=== PATIENT | female | born 1970 | race Caucasian/White ===

== ENCOUNTER 2016-09-26 22:13 | Emergency (ER) | payer OTHER ==
--- NOTE | 2016-09-27 07:00 | XR ---
EXAMINATION TYPE: XR tibia fibula LT DATE OF EXAM: 09/27/2016 6:53 AM COMPARISON: NONE HISTORY: Pain TECHNIQUE: Two views are submitted. FINDINGS: The osseous structures are intact. The joint spaces are preserved. IMPRESSION: 1. No acute osseous abnormality.
--- NOTE | 2016-09-27 07:09 | XR ---
LEFT ANKLE, 3 VIEWS INDICATION: Left ankle pain COMPARISON: None. FINDINGS: AP, mortise, and lateral views of the left ankle are obtained. Ankle mortise and syndesmosis are congruent. The talar dome is intact. There is no evidence of acute fracture or subluxation. There is no soft tissue swelling or radiopaque foreign body. IMPRESSION: No acute fracture or subluxation identified.
== END 2016-09-26 22:18 | disposition home or self-care (01) ==
LOC: EC 22:13
DX: S93.402A Sprain of unspecified ligament of left ankle, initial encounter (principal); F31.9 Bipolar disorder, unspecified; F17.200 Nicotine dependence, unspecified, uncomplicated; Z79.899 Other long term (current) drug therapy; Z88.8 Allergy status to other drugs, medicaments and biological substances; X50.1XXA Overexertion from prolonged static or awkward postures, initial encounter; Y92.410 Unspecified street and highway as the place of occurrence of the external cause
CPT/HCPCS: 99283; 73590; 73610; L4350

== ENCOUNTER 2017-01-23 10:06 | Observation (INO) | payer OTHER ==
[2017-01-23] MEDS ORDERED: KETOROLAC 30 MG/ML 1 ML VIAL IVP STA (10:52)
[2017-01-23] MEDS ORDERED: ceFAZolin 1,000 MG in DEXTROSE/WATER 1 50ML.BAG IVPB STA (10:55)
--- NOTE | 2017-01-23 10:57 | ED ---
Skin/Abscess/FB HPI - General Chief complaint: Skin/Abscess/Foreign Body Stated complaint: tooth abcess Time Seen by Provider: 01/23/17 10:30 Source: patient, RN notes reviewed Mode of arrival: ambulatory Limitations: no limitations - History of Present Illness Initial comments: This is a 46-year-old female who states she had a dental abscess for which she was prescribed amoxicillin she states she took it for for 5 days and started feeling better. This was good until last night which was about a week after she quit antibiotics she started developing right upper tooth pain and woke up this point was some swelling to the right side of her face. She denies any fevers chills or sweats to holy with vision symptoms she does state it hurts to bite down inside of her mouth. She denies any drainage or. She states she does have a broken tooth in the back. She hasn't difficulty swallowing difficulty breathing neck pain or other symptoms at this time. MD complaint: abscess/boil - Related Data Home Medications Medication Instructions Recorded Confirmed Citalopram Hydrobromide [CeleXA] 20 mg PO DAILY 01/23/17 01/23/17 Ibuprofen [Motrin] 1,000 mg PO ONCE PRN 01/23/17 01/23/17 Previous Rx's Medication Instructions Recorded OLANZapine [ZyPREXA] 2.5 mg PO BID 30 Days 12/13/15 Allergies Allergy/AdvReac Type Severity Reaction Status Date / Time imipramine Allergy Rash/Hives Verified 01/23/17 11:54 Review of Systems ROS Statement: Those systems with pertinent positive or pertinent negative responses have been documented in the HPI. ROS Other: All systems not noted in ROS Statement are negative. Past Medical History Past Medical History: No Reported History History of Any Multi-Drug Resistant Organisms: None Reported Past Surgical History: Cholecystectomy Additional Past Surgical History / Comment(s): fallopian tube and ovary removed , ectopic pregnacy, D&C, ovarian cyst drained Past Psychological History: Bipolar, Depression, PTSD Smoking Status: Current every day smoker Past Alcohol Use History: Occasional Past Drug Use History: None Reported - Past Family History Mother Family Medical History: Cancer, Renal Disease Additional Family Medical History / Comment(s): kidney ca Father Family Medical History: Hypertension, Myocardial Infarction ([place]) Additional Family Medical History / Comment(s): heart problems Brother(s) Family Medical History: Myocardial Infarction ([place]) Sister(s) Additional Family Medical History / Comment(s): Patient has one half-sister with no major medical problems. Daughter(s) Additional Family Medical History / Comment(s): Patient has 4 children, 3 daughters and 1 son with no major medical problems. General Exam - General Exam Comments Initial Comments: This is a well-developed well-nourished awake alert oriented 3 female Limitations: no limitations General appearance: alert, in no apparent distress Head exam: Present: atraumatic, normocephalic, normal inspection Eye exam: Present: normal appearance, PERRL, EOMI. Absent: scleral icterus, conjunctival injection, periorbital swelling ENT exam: Present: mucous membranes moist, TM's normal bilaterally, other ( Examination oropharynx reveals erythema to the gumline to the right upper gums no discrete area of fluctuance. Some ecchymosis is noted on the anterior aspect of the gumline. Tenderness to percussion with a tongue blade. The dentition is intact however that is present. Tenderness to the face and this region and over the maxillary sinus region.) Neck exam: Present: normal inspection, full ROM, other (No stridor JVD or bruits ). Absent: tenderness, meningismus, lymphadenopathy Respiratory exam: Present: normal lung sounds bilaterally. Absent: respiratory distress, wheezes, rales, rhonchi, stridor Cardiovascular Exam: Present: regular rate, normal rhythm, normal heart sounds. Absent: systolic murmur, diastolic murmur, rubs, gallop, clicks Extremities exam: Present: normal inspection, full ROM, normal capillary refill. Absent: tenderness, pedal edema, joint swelling, calf tenderness Back exam: Present: normal inspection, full ROM Neurological exam: Present: alert, oriented X3, CN II-XII intact Psychiatric exam: Present: normal affect, normal mood Skin exam: Present: warm, dry, intact, normal color. Absent: rash Course Vital Signs 01/23/17 10:11 Temperature 97.8 F Pulse Rate 92 Respiratory 18 Rate Blood Pressure 144/76 O2 Sat by Pulse 98 Oximetry Medical Decision Making - Medical Decision Making I did discuss findings with the patient she is feeling somewhat better she still has significant swelling erythema and tenderness to the right facial area. H will be admitted I did discuss case Dr. Castro patient will get a mandible x-ray series consultation by oral surgery patient will be placed on IV Zosyn. - Lab Data Result diagrams: 01/23/17 11:15 01/23/17 11:15 Lab Results 01/23/17 01/23/17 Range/Units 11:15 11:15 WBC 11.5 H (3.8-10.6) k/uL RBC 4.47 (3.80-5.40) m/uL Hgb 13.6 (11.4-16.0) gm/dL Hct 41.2 (34.0-46.0) % MCV 92.1 (80.0-100.0) fL MCH 30.5 (25.0-35.0) pg MCHC 33.1 (31.0-37.0) g/dL RDW 13.9 (11.5-15.5) % Plt Count 489 H (150-450) k/uL Neutrophils % 74 % Lymphocytes % 16 % Monocytes % 6 % Eosinophils % 2 % Basophils % 1 % Neutrophils # 8.5 H (1.3-7.7) k/uL Lymphocytes # 1.9 (1.0-4.8) k/uL Monocytes # 0.7 (0-1.0) k/uL Eosinophils # 0.2 (0-0.7) k/uL Basophils # 0.1 (0-0.2) k/uL Sodium 141 (137-145) mmol/L Potassium 4.3 (3.5-5.1) mmol/L Chloride 106 (98-107) mmol/L Carbon Dioxide 25 (22-30) mmol/L Anion Gap 10 mmol/L BUN 12 (7-17) mg/dL Creatinine 0.62 (0.52-1.04) mg/dL Est GFR (MDRD) Af Amer >60 (>60 ml/min/1.73 sqM) Est GFR (MDRD) Non-Af >60 (>60 ml/min/1.73 sqM) Glucose 88 (74-99) mg/dL Calcium 9.6 (8.4-10.2) mg/dL Total Bilirubin 0.4 (0.2-1.3) mg/dL AST 43 H (14-36) U/L ALT 86 H (9-52) U/L Alkaline Phosphatase 113 (38-126) U/L Total Protein 7.7 (6.3-8.2) g/dL Albumin 4.6 (3.5-5.0) g/dL Disposition Clinical Impression: Gingivitis, Facial cellulitis Disposition: ADMITTED IP TO THIS [facility] Condition: Stable Referrals: Domingo Sauceda DO [Primary Care Provider] - 1-2 days Decision Time: 12:10
[2017-01-23 11:28] LABS: Basophils # (A) 0.1 k/uL (0-0.2); Basophils % (A) 1 %; CH 31.5; CHCM 34.4; Eosinophils # (A) 0.2 k/uL (0-0.7); Eosinophils % (A) 2 %; HCT 41.2 % (34.0-46.0); HDW 2.43; HGB 13.6 gm/dL (11.4-16.0); Luc # (Auto) 0.12; Luc % (Auto) 1; Lymphocytes # (A) 1.9 k/uL (1.0-4.8); Lymphocytes % (A) 16 %; MCH 30.5 pg (25.0-35.0); MCHC 33.1 g/dL (31.0-37.0); MCV 92.1 fL (80.0-100.0); Monocytes # (A) 0.7 k/uL (0-1.0); Monocytes % (A) 6 %; Neutrophils # (A) 8.5 k/uL (1.3-7.7); Neutrophils % (A) 74 %; RBC 4.47 m/uL (3.80-5.40); RDW 13.9 % (11.5-15.5); WBC 11.5 k/uL (3.8-10.6); WBC (Perox) 11.74
[2017-01-23 11:43] LABS: ALT 86 U/L (9-52); AST 43 U/L (14-36); Alkaline Phosphatase 113 U/L (38-126); Anion Gap 10 mmol/L; Blood Urea Nitrogen 12 mg/dL (7-17); Calcium 9.6 mg/dL (8.4-10.2); Carbon Dioxide 25 mmol/L (22-30); Chloride 106 mmol/L (98-107); Glucose 88 mg/dL (74-99); Non-African American GFR(MDRD) >60 (>60 ml/min/1.73 sqM); Potassium 4.3 mmol/L (3.5-5.1); Sodium 141 mmol/L (137-145); Total Bilirubin 0.4 mg/dL (0.2-1.3); Total Protein 7.7 g/dL (6.3-8.2)
[2017-01-23] MEDS ORDERED: NALOXONE 0.4 MG/ML 1 ML VIAL IV PRN (12:26)
[2017-01-23] MEDS ORDERED: SODIUM CHLORIDE 0.9% 1,000 ML IV SCH (12:30)
[2017-01-23 14:18] VITALS: BMI 37.0
--- NOTE | 2017-01-23 15:30 | XR ---
Panorex HISTORY: Pain Panorex view is submitted. There is no fracture or dislocation. Lucency present at the upper teeth on the right may represent in fection. No definite periapical abscess. IMPRESSION: Correlate for dental decay.
[2017-01-23] MEDS: DEXAMETHASONE SOD PHOSPHATE 10 MG/ML 1 ML VIAL IV SCH ×2 (16:13→23:12)
[2017-01-23] MEDS: PIPERACILLIN-TAZOBACTAM 3.375 GM in DEXTROSE/WATER 1 50ML.BAG IVPB SCH ×2 (16:47→23:13)
--- NOTE | 2017-01-23 17:14 | P.HPIM ---
History of Present Illness H&P Date: 01/23/17 Chief Complaint: Tooth abscess/pain This a 46-year-old female patient of Dr. Nupur Sauceda with a benign medical history who presents to the emergency department today with pain from a dental abscess, received antibiotics took them for 5 days as prescribed began to feel better. Began to have pain last night which is about a week after she completed the course of the antibiotics and developed right upper tooth pain and swelling to the right side of her face. Denies fever or chills and sweating no visual symptoms or drainage. No difficulty swallowing breathing or neck pain at this time. Did mention she has another broken tooth in the back of her mouth. Review of Systems GEN.: [None] EYES: [None] HEENT: [Facial swelling, tooth pain] NECK: [None] RESPIRATORY: [None] CARDIOVASCULAR: [None] GASTROINTESTINAL: [Diarrhea and constipation, currently being worked up by GI specialist] GENITOURINARY: [None] MUSCULOSKELETAL: [None] LYMPHATICS: [None] HEMATOLOGICAL: [None] PSYCHIATRY: [PTSD, bipolar depression] NEUROLOGICAL: [None] Past Medical History Past Medical History: No Reported History History of Any Multi-Drug Resistant Organisms: None Reported Past Surgical History: Cholecystectomy Additional Past Surgical History / Comment(s): fallopian tube and ovary removed , ectopic pregnacy, D&C, ovarian cyst drained. colonoscopy. Past Anesthesia/Blood Transfusion Reactions: Postoperative Nausea & Vomiting ( PONV) Past Psychological History: Bipolar, Depression, PTSD Smoking Status: Current every day smoker Past Alcohol Use History: Occasional Additional Past Alcohol Use History / Comment(s): Patient is a smoker of a half a pack per day on and off since she was 29 years old. She states she drinks alcohol about one time per week. She denies any medical marijuana, marijuana, street drug use. Past Drug Use History: None Reported - Past Family History Mother Family Medical History: Cancer, Renal Disease Additional Family Medical History / Comment(s): kidney ca Father Family Medical History: Hypertension, Myocardial Infarction ([place]) Additional Family Medical History / Comment(s): heart problems Brother(s) Family Medical History: Myocardial Infarction ([place]) Sister(s) Additional Family Medical History / Comment(s): Patient has one half-sister with no major medical problems. Daughter(s) Additional Family Medical History / Comment(s): Patient has 4 children, 3 daughters and 1 son with no major medical problems. Medications and Allergies Home Medications Medication Instructions Recorded Confirmed Type OLANZapine [ZyPREXA] 2.5 mg PO BID 30 Days 12/13/15 01/23/17 Rx Citalopram Hydrobromide [CeleXA] 20 mg PO DAILY 01/23/17 01/23/17 History Ibuprofen [Motrin] 1,000 mg PO ONCE PRN 01/23/17 01/23/17 History Allergies Allergy/AdvReac Type Severity Reaction Status Date / Time imipramine Allergy Rash/Hives Verified 01/23/17 11:54 Physical Exam Vitals: Vital Signs Temp Pulse Pulse Resp BP BP Pulse Ox 01/23/17 16:00 98.1 F 79 16 110/58 96 01/23/17 14:15 79 16 01/23/17 13:50 98.0 F 79 16 114/58 94 L 01/23/17 13:42 71 16 114/55 98 01/23/17 10:11 97.8 F 92 18 144/76 98 Intake and Output 01/23/17 01/23/17 01/23/17 06:59 14:59 22:59 Other: Voiding Method Toilet Toilet Weight 86.183 kg Patient Weight 01/24/17 06:59 Weight 86.183 kg VITAL SIGNS: [. Temperature 98.0, pulse 79, respiratory rate 16, blood pressure 114/58, oxygen saturation 94% on room air. BMI 35.9 kg/m] GENERAL: [Average built, sitting up, comfortable]. EYES: [Pupils equal. Conjunctiva fernie]l. HEENT: [External appearance of nose and ears normal, oropharynx reveals erythema to the gumline to the right upper gums no fluctuance noted, ecchymosis to the anterior aspect of the gumline tender to palpation with a tongue blade dentition is intact, tenderness to the face and this area as well as the maxillary sinus region.]. NECK: [JVD not raised; masses not palpable]. HEART: [First and second heart sounds are normal; no edema]. LUNGS:[ Respiratory rate normal; clear to auscultation]. ABDOMEN: [Soft, nontender, liver spleen not palpable, no masses palpable]. LYMPHATICS: [No lymph nodes palpable in the axilla and neck]. PSYCH: [Alert and oriented x3; mood and affect fernie]l. NEUROLOGICAL: [Cranial nerves grossly intact; no facial asymmetry, power and sensation grossly intact]. Results CBC & Chem 7: 01/23/17 11:15 01/23/17 11:15 Labs: Abnormal Lab Results - Last 24 Hours (Table) 01/23/17 01/23/17 Range/Units 11:15 11:15 WBC 11.5 H (3.8-10.6) k/uL Plt Count 489 H (150-450) k/uL Neutrophils # 8.5 H (1.3-7.7) k/uL AST 43 H (14-36) U/L ALT 86 H (9-52) U/L Thrombosis Risk Factor Assmnt - Choose All That Apply Any of the Below Risk Factors Present?: Yes Each Factor Represents 1 point: Age 41-60 years, Obesity (BMI >25) Other Risk Factors: No Other congenital or acquired thrombophilia - If yes, enter type in comment: No Thrombosis Risk Factor Assessment Total Risk Factor Score: 2 Thrombosis Risk Factor Assessment Level: Low Risk Assessment and Plan Plan: ASSESSMENT: -Infection of the first second and third molar on the top right quadrant, gumline erythematous to both the medial and lateral aspect, failed outpatient treatment. -Maxillofacial pain related to #1 -Bipolar depression controlled -PTSD, controlled -Current smoker PLAN: Home medications reordered, panoramic x-ray ordered oral surgery consulted, Decadron ordered for swelling, IV antibiotics initiated, pain medication ordered. Smoking cessation discussed with patient. Plan of care discussed with the patient the bedside she is in agreement. We'll follow closely.
[2017-01-23] MEDS ORDERED: HYDROcodone/APAP 5-325MG 1 EACH TAB PO PRN (17:31)
[2017-01-23] MEDS ORDERED: KETOROLAC 30 MG/ML 1 ML VIAL IVP SCH (18:00)
[2017-01-23] MEDS: NICOTINE 7MG/24HR PATCH TRANSDERM SCH (23:11)
[2017-01-23] MEDS: NAPROXEN 250 MG TAB PO SCH (23:12)
[2017-01-24 08:12] VITALS: BP 97/56; PULSE 96; RESP 16; TEMP 98
[2017-01-24] MEDS: DEXAMETHASONE SOD PHOSPHATE 10 MG/ML 1 ML VIAL IV SCH (08:18)
[2017-01-24] MEDS: PIPERACILLIN-TAZOBACTAM 3.375 GM in DEXTROSE/WATER 1 50ML.BAG IVPB SCH (08:18)
[2017-01-24] MEDS: NAPROXEN 250 MG TAB PO SCH (08:19)
[2017-01-24] MEDS: NICOTINE 7MG/24HR PATCH TRANSDERM SCH (08:37)
[2017-01-24] MEDS ORDERED: OLANZapine 2.5 MG TAB PO SCH (09:00)
[2017-01-24] MEDS ORDERED: ENOXAPARIN 40 MG/0.4 ML SYRINGE SQ SCH (09:00)
[2017-01-24] MEDS ORDERED: CITALOPRAM HYDROBROMIDE 20 MG TAB PO SCH (09:00)
--- NOTE | 2017-01-24 10:28 | HP ---
HISTORY AND PHYSICAL DATE OF ADMISSION: January 23, 2017. PRESENT COMPLAINT: Right-sided face swollen. HISTORY OF PRESENTING COMPLAINT: This is a 46 -year-old patient of Dr. Sauceda who developed a dental abscess. Took 5 days of amoxicillin, was feeling better. Stopped taking 7 days ago. The infected tooth is on the right upper jaw on the right side. This morning noted a swelling on the right side of the face at work, increasing pain and decided to come in. FAMILY HISTORY: Of kidney disease with kidney cancer. SOCIAL HISTORY: The patient smokes about 4-5 cigarettes a day. Alcohol once a week. . Works at [employer]. EXAMINATION: On examination, temperature 97.8, pulse 90, respiratory rate 18, blood pressure 144/74, pulse ox 98% room air. BMI 35.9. Tenderness over the right maxillary sinus and puffiness to the right of the face. Lungs are clear. Cardiovascular first and second are normal. LABORATORY DATA: 11.5, platelets . Panorex view shows lucency present in the upper teeth on the right. ASSESSMENT AND PLAN: 1. Dental decay likely periapical abscesses even though not seen on x-ray, given that patient sinus area is rather tender right side of the face. 2. Chronic nicotine dependence, the patient is an active smoker. 3. Obesity BMI is 35.9. 4. Bipolar disorder. Under control. PLAN: Patient is started on IV Zosyn. Maxillary facial director of home economics was consulted. The patient was put on a clear liquid diet. Copy to Dr. Sauceda. Additionally this is attending note. Patient seen and examined by me today. I discussed with my nurse practitioner, Ms. Herrerapareshnegin. MMODL / IJN: [id number] /
--- NOTE | 2017-01-24 11:16 | CONS ---
CONSULTATION DATE OF CONSULTATION: 01/24/2017. CHIEF COMPLAINT: My face is swollen. HISTORY OF PRESENT ILLNESS: The patient is a 46-year-old, female, who had facial swelling of the right infraorbital and canine space region. She states that she had been on an antibiotic course of amoxicillin for approximately 1 week and her previous symptoms subsided. She was then off of the amoxicillin for 1 week and then she had acute swelling of the right face. She presented to the ER for evaluation. She was admitted for observation and IV antibiotics. PAST MEDICAL HISTORY: Unremarkable. She denies any cardio or pulmonary disease, GI or disease, endocrine disease, musculoskeletal disease. She does suffer from anxiety and depression. EXAMINATION: Head and neck reveals the patient to be in no distress. She is sitting in bed comfortably. There is mild swelling of the right canine space region which is soft and mildly tender. There is no other swelling present. There is no cervical lymphadenopathy. This swelling does not extend into the eye. Intraoral examination reveals tooth #5 to be decayed and sensitive to percussion. There is mild buccal vestibular swelling present which is tender to palpation. There is no other swelling or lesions noted in the oral cavity. Panoramic evaluation revealed tooth #5 to have distal caries extending into the pulp. A periapical radiolucency is also noted associated with tooth #5. ASSESSMENT: 1. Necrotic tooth #5. 2. Right facial cellulitis secondary to an odontogenic source. PLAN: The patient can be discharged today with p.o. antibiotics. The patient was also instructed to place heat to the area, no ice and to contact my office in the a.m. for an appointment to extract tooth #5. MMODL / IJN: [id number] /
--- NOTE | 2017-01-25 08:02 | DS ---
DISCHARGE SUMMARY DATE OF ADMISSION: 01/23/2017 DATE OF DISCHARGE: 01/24/2017 FINAL DIAGNOSES: 1. Right facial cellulitis secondary to odontogenic source of necrotic tooth #5. 2. Chronic nicotine dependence. Patient active cigarette smoker. 3. Obesity, body mass index 35.9. 4. Bipolar disorder, under control. HOSPITAL COURSE: This patient who has got above tooth infection only took 5 days of amoxicillin, started feeling better, stopped it. Presented with facial swelling. Seen by Dr. Diggs. Patient to be discharged home on antibiotics and have his tooth pulled out on Wednesday with Dr. Diggs. On exam, tenderness over the right maxilla. LUNGS: Slightly decreased breath sounds. Patient counseled against smoking at length. Total time spent on smoking cessation was about 5 minutes in addition to the discharge summary. DISCHARGE MEDICATIONS: 1. Zyprexa 2.5 mg p.o. b.i.d. 2. Celexa 20 mg p.o. daily. 3. Naproxen 250 mg p.o. b.i.d. 4. Nicotine patch 7. 5. Bactrim DS 1 tablet p.o. q.12 , fourteen tablets. Follow up with Dr. Diggs on 01/25/2017 [address] Domingo Sauceda in 3 days. MMODL / IJN: [id number] /
== END 2017-01-24 14:11 | disposition home or self-care (01) ==
LOC: EC 10:06 → 3OBS 12:26
PROVIDERS: ADMIT Hospitalist; ATTEND Hospitalist
DX: K02.9 Dental caries, unspecified (principal); L03.211 Cellulitis of face; K05.10 Chronic gingivitis, plaque induced; F43.10 Post-traumatic stress disorder, unspecified; F31.9 Bipolar disorder, unspecified; F41.9 Anxiety disorder, unspecified; F17.210 Nicotine dependence, cigarettes, uncomplicated; E66.9 Obesity, unspecified; Z68.35 Body mass index [BMI] 35.0-35.9, adult; Z79.899 Other long term (current) drug therapy; Z88.8 Allergy status to other drugs, medicaments and biological substances; Z80.51 Family history of malignant neoplasm of kidney; Z82.49 Family history of ischemic heart disease and other diseases of the circulatory system
CPT/HCPCS: 99284; 96365 ×2; 96375 ×3; 96366 ×2; 96367; 96376 ×2; 36415; 80053; 85025; 87040; 70355; G0378 ×2; J1100 ×2; J1885; J2543 ×2; J0690

== ENCOUNTER → 2017-11-15 | Outpatient (CLI) | payer OTHER ==
--- NOTE | 2017-11-15 07:58 | MR ---
EXAMINATION TYPE: MR ankle LT wo con DATE OF EXAM: 11/15/2017 COMPARISON: Left ankle radiographs dated 09/26/2016 HISTORY: Pain in left ankle and joints of left foot Standard multiplanar, multisequence MRI departmental protocol images of the left ankle were acquired without intravenous contrast. FINDINGS: Lateral compartment: There is a focal short segment split tear of the peroneus longus just distal to the fibula at the level of the talus extending over approximately 1.5 cm in length with surrounding m inimal amount of edema seen on axial images 11 through 14 on the PD fat-sat sequence and coronal imag e 19. Previous brevis is unremarkable. Medial compartment: There is a trace amount of fluid surrounding the posterior tibialis and thickenin g of the tendon with mild amount of surrounding subcutaneous edema on image 24 of axial PD fat-sat se quence. The flexor digitorum longus and flexor hallucis longus are intact and unremarkable in signal. Anterior compartment: The extensor tendons are unremarkable in signal and morphology. Posterior compartment: Achilles tendon is intact and unremarkable in signal and morphology. Ligaments: The Lisfranc ligament appears intact and alignment is maintained and the visualized midfoo t to forefoot. The anterior tibiotalar ligament displays internal heterogenous signal compatible with low-grade injury such as on image 21. The anterior talofibular ligament and posterior talofibular li gament appear intact and unremarkable. The deltoid ligament is also intact although there is high sig nal throughout its fibers and overlying edema indicative of low-grade injury without tear. The spring ligament is unremarkable. Bone marrow: Bone marrow signal is within normal limits. Incomplete fat saturation is seen of the med ial malleolus without corresponding T1 hypointensity. Other: Mild amount of nonspecific subcutaneous edema seen of the medial distal lower extremity above the ankle joint. Talar dome is intact. Alignment is maintained at the ankle joint. Plantar fascial is also unremarkable. Sinus tarsus is within normal limits. Minimal bony irregularity and osseous proli feration are seen of the talonavicular joint dorsally. Small amount of tibiotalar fluid appears withi n normal limits. IMPRESSION: 1. Focal short segment split tear of the Proteus longus just distal to the lateral malleolus/fibula w ith minimal overlying subcutaneous edema. 2. Mild posterior tibialis tenosynovitis with minimal overlying subcutaneous edema. 3. Low-grade injury without tear of the anterior tibiotalar ligament and deltoid ligament. Anterior a nd posterior talofibular ligaments are intact and unremarkable. 4. No evidence of malalignment of the left ankle common bone marrow edema or acute fracture. 5. Early mild degenerative change of the dorsal talonavicular joint.
== END | disposition home or self-care (01) ==
LOC: RADMRIMAIN 06:40
PROVIDERS: ATTEND Family Medicine
DX: S86.312A Strain of muscle(s) and tendon(s) of peroneal muscle group at lower leg level, left leg, initial encounter (principal); S93.422A Sprain of deltoid ligament of left ankle, initial encounter; S93.492A Sprain of other ligament of left ankle, initial encounter; M65.872 Other synovitis and tenosynovitis, left ankle and foot; M19.072 Primary osteoarthritis, left ankle and foot

== ENCOUNTER → 2018-05-26 | Outpatient (CLI) | payer OTHER ==
--- NOTE | 2018-05-29 07:40 | MM ---
Reason for exam: clinical finding. Last mammogram was performed 3 years and 2 months ago. History: Patient is postmenopausal. Family history of breast cancer in maternal grandmother at age 50. Took hormonal contraceptives for 2 years beginning at age 21. Indicated problem(s): pain in the left breast. Physical Findings: Nurse did not find any significant physical abnormalities on exam. MG 3D Diag Mammo W/Cad AIME Bilateral CC and MLO view(s) were taken. Prior study comparison: March 29, 2015, right breast MG 3d work up w/cad RT. March 25, 2015, bilateral MG screening mammo w CAD. The breast tissue is heterogeneously dense. This may lower the sensitivity of mammography. No discrete abnormality. These results were verbally communicated with the patient and result sheet given to the patient on 05/26/18. ASSESSMENT: Negative, BI-RAD 1 RECOMMENDATION: Routine screening mammogram of both breasts in 1 year.
--- NOTE | 2018-05-29 07:43 | USB ---
History: Patient is postmenopausal. Family history of breast cancer in maternal grandmother at age 50. Took hormonal contraceptives for 2 years beginning at age 21. US Breast LT Bilateral complete breast ultrasound includes all four quadrants, the retroareolar region and axilla. Finding demonstrates No cystic or solid lesion seen. These results were verbally communicated with the patient and result sheet given to the patient on 05/26/18. ASSESSMENT: Negative, BI-RAD 1 RECOMMENDATION: Clinical management. Manage on a clinical basis the breast pain. Routine screening mammogram of both breasts in 1 year.
== END | disposition home or self-care (01) ==
LOC: RADMAMWWP 07:33
PROVIDERS: ATTEND Family Medicine
DX: N64.4 Mastodynia (principal)
CPT/HCPCS: 77062; 77066

== ENCOUNTER 2019-04-10 21:12 | Emergency (ER) | payer OTHER ==
[2019-04-10 21:15] VITALS: BP 136/82; PULSE 99; RESP 20; TEMP 98.5
[2019-04-10] MEDS ORDERED: IBUPROFEN 600 MG TAB PO STA ×3 (21:49→22:16)
--- NOTE | 2019-04-10 22:14 | XR ---
EXAMINATION TYPE: XR hand complete RT DATE OF EXAM: 04/10/2019 COMPARISON: NONE HISTORY: Hand pain TECHNIQUE: 3 views FINDINGS: Metacarpals are intact. I see no fracture nor dislocation. There are no erosions. IMPRESSION: No fracture seen.
--- NOTE | 2019-04-10 22:15 | XR ---
EXAMINATION TYPE: XR forearm RT DATE OF EXAM: 04/10/2019 COMPARISON: NONE HISTORY: Forearm pain TECHNIQUE: 2 views FINDINGS: Radius and ulna appear intact. I see no fracture nor dislocation. Elbow joint and wrist lilian nt appear intact. IMPRESSION: Negative right forearm exam.
--- NOTE | 2019-04-10 22:16 | XR ---
EXAMINATION TYPE: XR wrist complete RT DATE OF EXAM: 04/10/2019 COMPARISON: NONE HISTORY: Wrist pain TECHNIQUE: 4 views FINDINGS: I see no fracture nor dislocation. Joint spaces are normal. . IMPRESSION: Negative right wrist exam
--- NOTE | 2019-04-11 14:09 | ED ---
General Adult HPI - General Chief complaint: Extremity Injury, Upper Stated complaint: Wrist Injury Time Seen by Provider: 04/10/19 21:38 Source: patient, RN notes reviewed, old records reviewed Mode of arrival: ambulatory Limitations: no limitations - History of Present Illness Initial comments: 48-year-old female patient presents to ED complaining of right wrist injury. Patient forced that she was squatting down when she slipped and fell backwards. Fallingl on outstretched right arm. Denies any trauma to head or neck. Denies any other injury. Plain is forearm wrist and hand pain. Denies other complaints. Systemic: Pt denies fatigue, fever/chills, rash. Pt denies weakness, night sweats, weight loss. Neuro: Pt denies headache, visual disturbances, syncope or pre-syncope. HEENT: Pt denies ocular discharge or irritation, otalgia, rhinorrhea, pharyngitis or notable lymphadenopathy. Cardiopulmonary: Pt denies chest pain, SOB, heart palpitations, dyspnea on exertion. Abdominal/GI: Pt denies abdominal pain, n/v/d. : Pt denies dysuria, burning w/ urination, frequency/urgency. Denies new onset urinary or bowel incontinence. MSK: Pt denies loss of strength or function in extremities. Neuro: Pt denies new onset weakness, paresthesias. - Related Data Home Medications Medication Instructions Recorded Confirmed Citalopram Hydrobromide [CeleXA] 20 mg PO DAILY 01/23/17 01/23/17 Previous Rx's Medication Instructions Recorded OLANZapine [ZyPREXA] 2.5 mg PO BID 30 Days tab 12/13/15 Naproxen [Naprosyn] 250 mg PO BID #14 tab 01/24/17 Nicotine 7Mg/24Hr Patch [Habitrol] 1 patch TRANSDERM DAILY #14 patch 01/24/17 Sulfamethox-Tmp 800-160Mg [Bactrim 1 tab PO Q12HR #14 tab 01/24/17 DS 800-160 mg] Allergies Allergy/AdvReac Type Severity Reaction Status Date / Time imipramine Allergy Rash/Hives Verified 04/10/19 21:15 Review of Systems ROS Statement: Those systems with pertinent positive or pertinent negative responses have been documented in the HPI. ROS Other: All systems not noted in ROS Statement are negative. Past Medical History Past Medical History: No Reported History History of Any Multi-Drug Resistant Organisms: None Reported Past Surgical History: Cholecystectomy Additional Past Surgical History / Comment(s): fallopian tube and ovary removed, ectopic pregnacy, D&C, ovarian cyst drained. colonoscopy. Past Anesthesia/Blood Transfusion Reactions: Postoperative Nausea & Vomiting (PONV) Past Psychological History: Bipolar, Depression, PTSD Smoking Status: Current every day smoker Past Alcohol Use History: Occasional Past Drug Use History: None Reported - Past Family History Mother Family Medical History: Cancer, Renal Disease Additional Family Medical History / Comment(s): kidney ca Father Family Medical History: Hypertension, Myocardial Infarction ([place]) Additional Family Medical History / Comment(s): heart problems Brother(s) Family Medical History: Myocardial Infarction ([place]) Sister(s) Additional Family Medical History / Comment(s): Patient has one half-sister with no major medical problems. Daughter(s) Additional Family Medical History / Comment(s): Patient has 4 children, 3 daughters and 1 son with no major medical problems. General Exam - General Exam Comments Initial Comments: Constitutional: NAD, AOX3, Pt has pleasant affect. HEENT: NC/AT, trachea midline, neck supple, no lymphadenopathy. Posterior pharynx non erythematous, without exudates. External ears appear normal, without discharge. Mucous membranes moist. Eyes PERRLA, EOM intact. There is no scleral icterus. No pallor noted. Cardiopulmonary: RRR, no murmurs, rubs or gallops, no JVD noted. Lungs CTAB in anterior and posterior jaimes. No peripheral edema. Abdominal exam: Abdomen soft and non-distended. Abdomen non-tender to palpation in all 4 quadrants. Bowel sounds active in LLQ. No hepatosplenomegaly. No ecchymosis Neuro: CN II-XII grossly intact. No nuchal rigidity. No raccon eyes, no gunter sign, no hemotympanum. No cervical spinal tenderness. MSK: Mild tenderness to distal radius snuffbox region. Full active range of motion of wrist and all fingers. Neurovascularly intact. Thumb spica splint placed. Neurovascularly intact after splint placement. No posterior calf tenderness bilaterally, homans sign negative bilaterally. Posterior tibialis and radial pulse +2 bilaterally. Sensation intact in upper and lower extremities. Full active ROM in upper and lower extremities, 5/5 stregnth. Limitations: no limitations Course Vital Signs 04/10/19 21:13 Temperature 98.5 F Pulse Rate 99 Respiratory 20 Rate Blood Pressure 136/82 O2 Sat by Pulse 96 Oximetry Medical Decision Making - Medical Decision Making 48-year-old female patient presents to the chief complaint of fall nauseous right arm, right wrist injury. Patient also in stable, afebrile. Physical exam displayed out snuffbox tenderness. Plain films were negative. Patient placed in a thumb spica splint, neurovascularly intact after splint placement. Will discharge the patient orthopedic follow-up and repeat films. We'll turn the condition worsens. Case discussed with Dr. Ruano. Disposition Clinical Impression: Wrist sprain Disposition: HOME SELF-CARE Condition: Stable Instructions (If sedation given, give patient instructions): Wrist Injury (ED) Additional Instructions: Follow-up with primary care provider and orthopedic consult tomorrow. Return to ER if condition worsens. Continue to wear splint. Is patient prescribed a controlled substance at d/c from ED?: No Referrals: Domingo Sauceda DO [Primary Care Provider] - 1-2 days Henok Elise MD [STAFF PHYSICIAN] - 1-2 days
== END 2019-04-10 23:40 | disposition home or self-care (01) ==
LOC: EC 21:12
DX: S63.501A Unspecified sprain of right wrist, initial encounter (principal); F32.9 Major depressive disorder, single episode, unspecified; F17.200 Nicotine dependence, unspecified, uncomplicated; Z79.899 Other long term (current) drug therapy; Z88.8 Allergy status to other drugs, medicaments and biological substances; W01.0XXA Fall on same level from slipping, tripping and stumbling without subsequent striking against object, initial encounter
CPT/HCPCS: 29125; 99284

== ENCOUNTER → 2019-09-19 | Outpatient (CLI) | payer SELFPAY ==
--- NOTE | 2019-09-19 12:09 | XR ---
EXAMINATION TYPE: XR chest 2V DATE OF EXAM: 09/19/2019 COMPARISON: NONE HISTORY: Chest pain TECHNIQUE: Frontal and lateral views of the chest are obtained. FINDINGS: There is no focal air space opacity. No evidence for pneumothorax. No pleural effusion. The cardiac silhouette size is within normal limits. The osseous structures are grossly intact. IMPRESSION: 1. No acute cardiopulmonary process.
== END | disposition home or self-care (01) ==
LOC: RADXRMAIN 11:43
PROVIDERS: ATTEND Family Medicine
DX: R50.9 Fever, unspecified (principal)
CPT/HCPCS: 71046

== ENCOUNTER 2020-02-29 07:29 | Emergency (ER) | payer OTHER ==
[2020-02-29 07:35] VITALS: BP 144/79; PULSE 95; RESP 18; TEMP 98.4
[2020-02-29] MEDS ORDERED: AMOXIC-POT CLAV 875MG STARTER PACK 2 TAB BTL PO STA (07:40)
--- NOTE | 2020-02-29 07:41 | ED ---
ENT HPI - General Chief complaint: Dental/Oral Stated complaint: Mouth Pain Time Seen by Provider: 02/29/20 07:36 Source: patient Mode of arrival: ambulatory Limitations: no limitations - History of Present Illness Initial comments: 49yo female presenting today for cc of left upper dental pain. Patient states that she has had left upper dental pain x 2 days. Patient states she she now has some left facial swelling. Denies swelling below tongue, fevers, difficulty swallowing. Patient appears well nontoxic in no acute distress. - Related Data Home Medications Medication Instructions Recorded Confirmed Citalopram Hydrobromide [CeleXA] 20 mg PO DAILY 01/23/17 01/23/17 Previous Rx's Medication Instructions Recorded OLANZapine [ZyPREXA] 2.5 mg PO BID 30 Days tab 12/13/15 Naproxen [Naprosyn] 250 mg PO BID #14 tab 01/24/17 Nicotine 7Mg/24Hr Patch [Habitrol] 1 patch TRANSDERM DAILY #14 patch 01/24/17 Sulfamethox-Tmp 800-160Mg [Bactrim 1 tab PO Q12HR #14 tab 01/24/17 DS 800-160 mg] Amoxicillin/Potassium Clav 1 tab PO Q12HR 7 Days #14 tab 02/29/20 [Augmentin 875-125 Tablet] Allergies Allergy/AdvReac Type Severity Reaction Status Date / Time imipramine Allergy Rash/Hives Verified 02/29/20 07:35 Review of Systems ROS Statement: Those systems with pertinent positive or pertinent negative responses have been documented in the HPI. ROS Other: All systems not noted in ROS Statement are negative. Past Medical History Past Medical History: No Reported History Additional Past Medical History / Comment(s): pseudotumor History of Any Multi-Drug Resistant Organisms: None Reported Past Surgical History: Cholecystectomy Additional Past Surgical History / Comment(s): fallopian tube and ovary removed, ectopic pregnacy, D&C, ovarian cyst drained. colonoscopy. Past Anesthesia/Blood Transfusion Reactions: Postoperative Nausea & Vomiting (PONV) Past Psychological History: Bipolar, Depression, PTSD Smoking Status: Current every day smoker Past Alcohol Use History: Occasional Past Drug Use History: None Reported - Past Family History Mother Family Medical History: Cancer, Renal Disease Additional Family Medical History / Comment(s): kidney ca Father Family Medical History: Hypertension, Myocardial Infarction ([place]) Additional Family Medical History / Comment(s): heart problems Brother(s) Family Medical History: Myocardial Infarction ([place]) Sister(s) Additional Family Medical History / Comment(s): Patient has one half-sister with no major medical problems. Daughter(s) Additional Family Medical History / Comment(s): Patient has 4 children, 3 daughters and 1 son with no major medical problems. General Exam - General Exam Comments Initial Comments: General: The patient is awake and alert, in no distress Eye: Pupils are equal, round and reactive to light, extra-ocular movements are intact. No nystagmus. There is normal conjunctiva bilaterally. No signs of icterus. Ears, nose, mouth and throat: There are moist mucous membranes and no oral lesions. Mild left sided facial swelling, patient has 1 tooth that is carious of the left upper jaw tender to percussion. No adjacent area of fluctuation of the gingiva. No swelling below tongue or the angle of the mandible. Neck: The neck is supple, there is no tenderness or JVD. Musculoskeletal: Normal ROM, no tenderness. Strength 5/5. Sensation intact. Radial pulses equal bilaterally 2+. Neurological: A&O x 3. CN II-XII intact grossly, There are no obvious motor or sensory deficits. Coordination appears grossly intact. Speech is normal. Skin: Skin is warm and dry and no rashes or lesions are noted. Psychiatric: Cooperative, appropriate mood & affect, normal judgment. Limitations: no limitations Course Vital Signs 02/29/20 07:33 Temperature 98.4 F Pulse Rate 95 Respiratory 18 Rate Blood Pressure 144/79 O2 Sat by Pulse 97 Oximetry Medical Decision Making - Medical Decision Making Finding on exam concerning for dental infection. pt initiated on augmentin. no signs of ludwigs angina, pt does not appear toxic. discussed case [facility] attending who is agreeable to care plan and discharge. Disposition Clinical Impression: Dental infection Disposition: HOME SELF-CARE Condition: Good Instructions (If sedation given, give patient instructions): Dental Abscess (ED) Additional Instructions: Please use medication as discussed. Please follow-up with dentist in the next 2 days.. Please return to emergency room if the symptoms increase or worsen or for any other concerns. Prescriptions: Amoxicillin/Potassium Clav [Augmentin 875-125 Tablet] 1 tab PO Q12HR 7 Days #14 tab Is patient prescribed a controlled substance at d/c from ED?: No Referrals: Domingo Sauceda DO [Primary Care Provider] - 1-2 days Time of Disposition: 07:41
== END 2020-02-29 07:49 | disposition home or self-care (01) ==
LOC: EC 07:29
DX: K04.7 Periapical abscess without sinus (principal); F41.9 Anxiety disorder, unspecified; F32.9 Major depressive disorder, single episode, unspecified; F17.200 Nicotine dependence, unspecified, uncomplicated; Z79.899 Other long term (current) drug therapy; Z88.8 Allergy status to other drugs, medicaments and biological substances
CPT/HCPCS: 99282

== ENCOUNTER → 2020-03-21 | Outpatient (CLI) | payer OTHER ==
--- NOTE | 2020-03-22 14:41 | MM ---
Reason for exam: screening (asymptomatic). Last mammogram was performed 1 year and 10 months ago. History: Patient is postmenopausal. Family history of breast cancer in maternal grandmother at age 50. Took hormonal contraceptives for 2 years beginning at age 21. Physical Findings: A clinical breast exam by your physician is recommended on an annual basis and results should be correlated with mammographic findings. MG Screening Mammo w CAD Bilateral CC and MLO view(s) were taken. Prior study comparison: May 26, 2018, bilateral MG 3d diag mammo w/cad AIME. March 29, 2015, right breast MG 3d work up w/cad RT. There are scattered fibroglandular densities. There is chronic nodularity in the left breast. No significant changes when compared with prior studies. ASSESSMENT: Benign, BI-RAD 2 RECOMMENDATION: Routine screening mammogram of both breasts in 1 year.
== END | disposition home or self-care (01) ==
LOC: RADMAMWWP 10:59
PROVIDERS: ATTEND Family Medicine
DX: Z12.31 Encounter for screening mammogram for malignant neoplasm of breast (principal)
CPT/HCPCS: 77067

== ENCOUNTER → 2020-05-06 | Outpatient (CLI) | payer OTHER | END | disposition home or self-care (01) | LOC: LABWHC1 12:08 | PROVIDERS: ATTEND Psychiatry & Neurology Pain Medicine | DX: R00.2 Palpitations (principal) | CPT/HCPCS: 36415; 93005 ==

== ENCOUNTER → 2020-05-24 | Outpatient (CLI) | payer OTHER ==
[2020-05-25 02:38] LABS: T4, Free (Free Thyroxine) 0.8 ng/dL (0.80-1.80)
== END | disposition home or self-care (01) ==
LOC: LABWHC1 15:55
PROVIDERS: ATTEND Internal Medicine Interventional Cardiology
DX: E05.90 Thyrotoxicosis, unspecified without thyrotoxic crisis or storm (principal)
CPT/HCPCS: 36415; 84439; 84443

== ENCOUNTER 2020-06-24 17:37 | Emergency (ER) | payer OTHER ==
--- NOTE | 2020-06-24 18:18 | ED ---
General Adult HPI - General Chief complaint: Arrhythmia/Palpitations Stated complaint: head injury, palpitations Time Seen by Provider: 06/24/20 17:52 Source: patient Mode of arrival: ambulatory Limitations: no limitations - History of Present Illness Initial comments: Dictation was produced using [employer] dictation software. please excuse any gramma tical, word or spelling errors. This patient was cared for during a federal and state declared state of emergency secondary to Covid 19 Chief Complaint: 49-year-old female with past medical history of pseudotumor cerebri presents to the emergency department for chest pain and palpitations. History of Present Illness: Patient is a 49-year-old female she presents to the emergency department for chest pain or palpitations. Patient states she's been having these symptoms for a week. Back in December of last year she was diagnosed with pseudotumor cerebri. She is was initially seen here and transferred to [facility]. Patient states that she follows up with her neurologist bao ramos. She scheduled to have a lumbar puncture in one week. She states that she does not take her medications for pseudotumor because she feels like they do not help her symptoms. She has a referral to see a neurosurgeon for shunt placement. States last time she had a lumbar puncture was back in February last year. Patient states for the last several weeks she's been having worsening headache and worsening vision changes. She states her vision changes or blurriness and diplopia. So for the last 1 week patient has been having chest pain and shortness of breath. She states that whenever she talks for prolonged periods of time that she would have symptoms. She called her certified physical therapist assistant who ordered her Lopressor. She was then told to come to the emergency room for concerns of neurologic issues. She tried to contact her neurologist who was unavailable today. She somehow ended up in emergency department for evaluation. They said her blood pressures have been running on the high side. The ROS documented in this emergency department record has been reviewed and confirmed by me. Those systems with pertinent positive or negative responses have been documented in the HPI. All other systems are other negative and/or noncontributory. PHYSICAL EXAM: General Impression: Alert and oriented x3, not in acute distress HEENT: Normocephalic atraumatic, extra-ocular movements intact, pupils equal and reactive to light bilaterally, mucous membranes moist. Cardiovascular: Heart regular rate and rhythm Chest: Able to complete full sentences, no retractions, no tachypnea Abdomen: abdomen soft, non-tender, non-distended, no organomegaly Musculoskeletal: Pulses present and equal in all extremities, no peripheral edema Motor: no focal deficits noted Neurological: CN II-XII grossly intact, no focal motor or sensory deficits noted Skin: Intact with no visualized rashes Psych: Normal affect and mood ED course: 49 y old female past medical history of pseudotumor cerebri presents to the emergency department for chest pain, palpitations. She also has symptoms of pseudotumor cerebri. She's not been compliant with her pseudotumor prescriptions. Signs upon arrival are within acceptable limits. EKG interpretation: Ventricular rate 89, normal sinus rhythm, ND interval 146, QS 12, QTc 435. No ND prolongation, no QTC prolongation, no ST or T-wave changes noted. EKG compared to 05/06/2020 showing no changes. Overall, this EKG is unremarkable Lavatory evaluation obtained. CBC, coag panel, metabolic panel is unremarkable. Chest x-ray shows no acute processes. Patient was observed in emergency department for approximately 2 hours. Should not have any cardiac issues. It was discussed with patient that I would recommend that she be admitted for neurology consultation and to have a lumbar puncture performed given that she's been having ongoing headache and vision symptoms she declined and would prefer to be discharged to follow-up with her neurologist. She also also follow-up with her neurosurgeon to get a intracranial shunt. She understands that by being discharged that she could experience worsening vision changes and even having permanent vision loss. It was instruction for the patient to reconsider taking her pseudotumor medications prescribed by her neurologist and to expedite her lumbar puncture by calling her neurologist office. Return parameters discussed. Patient is told to return to emergency department if she changes her mind. There is for palpitation she is advised follow-up with her certified physical therapist assistant for Holter monitoring. At time of discharge patient was in no acute distress. She is showing no signs of dyspnea. Her vital signs are stable. - Related Data Home Medications Medication Instructions Recorded Confirmed Butalb/APAP/Caff 50-325-40Mg 1 tab PO BID PRN 06/24/20 06/24/20 [Fioricet 50-325-40] Metoprolol Tartrate [Lopressor] 12.5 mg PO DAILY 06/24/20 06/24/20 Allergies Allergy/AdvReac Type Severity Reaction Status Date / Time imipramine Allergy Rash/Hives Verified 06/24/20 19:03 Review of Systems ROS Statement: Those systems with pertinent positive or pertinent negative responses have been documented in the HPI. ROS Other: All systems not noted in ROS Statement are negative. Past Medical History Past Medical History: No Reported History Additional Past Medical History / Comment(s): pseudotumor History of Any Multi-Drug Resistant Organisms: None Reported Past Surgical History: Cholecystectomy Additional Past Surgical History / Comment(s): fallopian tube and ovary removed, ectopic pregnacy, D&C, ovarian cyst drained. colonoscopy. Past Anesthesia/Blood Transfusion Reactions: Postoperative Nausea & Vomiting (PONV) Past Psychological History: Bipolar, Depression, PTSD Smoking Status: Current every day smoker Past Alcohol Use History: Occasional Past Drug Use History: None Reported - Past Family History Mother Family Medical History: Cancer, Renal Disease Additional Family Medical History / Comment(s): kidney ca Father Family Medical History: Hypertension, Myocardial Infarction ([place]) Additional Family Medical History / Comment(s): heart problems Brother(s) Family Medical History: Myocardial Infarction ([place]) Sister(s) Additional Family Medical History / Comment(s): Patient has one half-sister with no major medical problems. Daughter(s) Additional Family Medical History / Comment(s): Patient has 4 children, 3 daughters and 1 son with no major medical problems. General Exam Limitations: no limitations Course Vital Signs 06/24/20 06/24/20 17:45 18:30 Temperature 99.3 F Pulse Rate 95 89 Respiratory 18 18 Rate Blood Pressure 144/84 148/105 O2 Sat by Pulse 96 95 Oximetry Medical Decision Making - Lab Data Result diagrams: 06/24/20 18:29 06/24/20 18:29 Lab Results 06/24/20 06/24/20 06/24/20 Range/Units 18:29 18:29 18:29 WBC 10.3 (3.8-10.6) k/uL RBC 4.50 (3.80-5.40) m/uL Hgb 14.3 (11.4-16.0) gm/dL Hct 42.0 (34.0-46.0) % MCV 93.2 (80.0-100.0) fL MCH 31.9 (25.0-35.0) pg MCHC 34.2 (31.0-37.0) g/dL RDW 12.9 (11.5-15.5) % Plt Count 496 H (150-450) k/uL MPV 7.3 Neutrophils % 59 % Lymphocytes % 30 % Monocytes % 6 % Eosinophils % 3 % Basophils % 1 % Neutrophils # 6.1 (1.3-7.7) k/uL Lymphocytes # 3.1 (1.0-4.8) k/uL Monocytes # 0.6 (0-1.0) k/uL Eosinophils # 0.3 (0-0.7) k/uL Basophils # 0.1 (0-0.2) k/uL PT 9.8 (9.0-12.0) sec INR 0.9 (<1.2) APTT 25.7 (22.0-30.0) sec Sodium 140 (137-145) mmol/L Potassium 4.8 (3.5-5.1) mmol/L Chloride 105 (98-107) mmol/L Carbon Dioxide 25 (22-30) mmol/L Anion Gap 10 mmol/L BUN 15 (7-17) mg/dL Creatinine 0.88 (0.52-1.04) mg/dL Est GFR (CKD-EPI)AfAm >90 (>60 ml/min/1.73 sqM) Est GFR (CKD-EPI)NonAf 78 (>60 ml/min/1.73 sqM) Glucose 93 (74-99) mg/dL Calcium 10.2 (8.4-10.2) mg/dL Total Bilirubin 0.3 (0.2-1.3) mg/dL AST 26 (14-36) U/L ALT 24 (4-34) U/L Alkaline Phosphatase 92 (38-126) U/L Troponin I (0.000-0.034) ng/mL NT-Pro-B Natriuret Pep pg/mL Total Protein 7.5 (6.3-8.2) g/dL Albumin 4.6 (3.5-5.0) g/dL 06/24/20 06/24/20 Range/Units 18:29 18:29 WBC (3.8-10.6) k/uL RBC (3.80-5.40) m/uL Hgb (11.4-16.0) gm/dL Hct (34.0-46.0) % MCV (80.0-100.0) fL MCH (25.0-35.0) pg MCHC (31.0-37.0) g/dL RDW (11.5-15.5) % Plt Count (150-450) k/uL MPV Neutrophils % % Lymphocytes % % Monocytes % % Eosinophils % % Basophils % % Neutrophils # (1.3-7.7) k/uL Lymphocytes # (1.0-4.8) k/uL Monocytes # (0-1.0) k/uL Eosinophils # (0-0.7) k/uL Basophils # (0-0.2) k/uL PT (9.0-12.0) sec INR (<1.2) APTT (22.0-30.0) sec Sodium (137-145) mmol/L Potassium (3.5-5.1) mmol/L Chloride (98-107) mmol/L Carbon Dioxide (22-30) mmol/L Anion Gap mmol/L BUN (7-17) mg/dL Creatinine (0.52-1.04) mg/dL Est GFR (CKD-EPI)AfAm (>60 ml/min/1.73 sqM) Est GFR (CKD-EPI)NonAf (>60 ml/min/1.73 sqM) Glucose (74-99) mg/dL Calcium (8.4-10.2) mg/dL Total Bilirubin (0.2-1.3) mg/dL AST (14-36) U/L ALT (4-34) U/L Alkaline Phosphatase (38-126) U/L Troponin I <0.012 (0.000-0.034) ng/mL NT-Pro-B Natriuret Pep 30 pg/mL Total Protein (6.3-8.2) g/dL Albumin (3.5-5.0) g/dL Disposition Clinical Impression: Palpitations Disposition: HOME SELF-CARE Condition: Fair Instructions (If sedation given, give patient instructions): Heart Palpitations (ED) Is patient prescribed a controlled substance at d/c from ED?: No Referrals: Domingo Sauceda DO [Primary Care Provider] - 1-2 days Time of Disposition: 19:20
[2020-06-24 18:35] LABS: Basophils # (A) 0.1 k/uL (0-0.2); Basophils % (A) 1 %; Eosinophils # (A) 0.3 k/uL (0-0.7); Eosinophils % (A) 3 %; HGB 14.3 gm/dL (11.4-16.0); Lymphocytes # (A) 3.1 k/uL (1.0-4.8); Lymphocytes % (A) 30 %; MCH 31.9 pg (25.0-35.0); MCHC 34.2 g/dL (31.0-37.0); MCV 93.2 fL (80.0-100.0); Mean Platelet Volume 7.3; Monocytes # (A) 0.6 k/uL (0-1.0); Monocytes % (A) 6 %; Neutrophils # (A) 6.1 k/uL (1.3-7.7); Neutrophils % (A) 59 %; Platelet Count 496 k/uL (150-450); RDW 12.9 % (11.5-15.5); WBC 10.3 k/uL (3.8-10.6)
[2020-06-24 18:44] LABS: INR 0.9 (<1.2); Partial Thromboplastin Time 25.7 sec (22.0-30.0); Prothrombin Time 9.8 sec (9.0-12.0)
[2020-06-24 18:45] LABS: ALT 24 U/L (4-34); AST 26 U/L (14-36); African American GFR (CKD) >90 (>60 ml/min/1.73 sqM); Albumin 4.6 g/dL (3.5-5.0); Alkaline Phosphatase 92 U/L (38-126); Anion Gap 10 mmol/L; Blood Urea Nitrogen 15 mg/dL (7-17); Calcium 10.2 mg/dL (8.4-10.2); Carbon Dioxide 25 mmol/L (22-30); Chloride 105 mmol/L (98-107); Glucose 93 mg/dL (74-99); Non-African American GFR(CKD) 78 (>60 ml/min/1.73 sqM); Potassium 4.8 mmol/L (3.5-5.1); Sodium 140 mmol/L (137-145); Total Bilirubin 0.3 mg/dL (0.2-1.3); Total Protein 7.5 g/dL (6.3-8.2)
--- NOTE | 2020-06-24 19:06 | XR ---
EXAMINATION TYPE: XR chest 1V portable DATE OF EXAM: 06/24/2020 COMPARISON: 09/19/2019. HISTORY: Chest pain/palpitations. TECHNIQUE: Single frontal view of the chest is obtained. FINDINGS: There is no focal air space opacity, pleural effusion, or pneumothorax seen. The cardiac silhouette size is within normal limits. The osseous structures are intact. IMPRESSION: No acute process.
[2020-06-24 19:47] VITALS: BP 139/96; PULSE 86; RESP 16; TEMP 98.7
== END 2020-06-24 19:47 | disposition home or self-care (01) ==
LOC: EC 17:37
DX: R00.2 Palpitations (principal); R07.9 Chest pain, unspecified; F17.200 Nicotine dependence, unspecified, uncomplicated; Z90.49 Acquired absence of other specified parts of digestive tract; Z88.8 Allergy status to other drugs, medicaments and biological substances; Z82.49 Family history of ischemic heart disease and other diseases of the circulatory system
CPT/HCPCS: 36415; 71045; 80053; 83880; 84484; 85025; 85610; 85730; 93005; 99285

== ENCOUNTER → 2020-07-11 | Outpatient (CLI) | payer OTHER ==
[2020-07-11 18:33] LABS: African American GFR (CKD) 77.2 (60.0-200.0); Anion Gap 7.2 mmol/L (4.00-12.00); Calcium 10.5 mg/dL (8.7-10.3); Carbon Dioxide 24.8 mmol/L (21.6-31.8); Magnesium 2.4 mg/dL (1.5-2.4); Non-African American GFR(CKD) 66.6 (60.0-200.0); Potassium 4.5 mmol/L (3.5-5.5)
== END | disposition home or self-care (01) ==
LOC: LABWHC1 10:16
PROVIDERS: ATTEND Nurse Practitioner
DX: I10 Essential (primary) hypertension (principal)
CPT/HCPCS: 36415; 80048; 83735

== ENCOUNTER → 2020-08-20 | Outpatient (CLI) | payer OTHER ==
--- NOTE | 2020-08-20 10:12 | CT ---
EXAMINATION TYPE: CT angio chest DATE OF EXAM: 08/20/2020 COMPARISON: None HISTORY: Pulmonary hypertension, tachycardia, trouble breathing CT DLP: 489 mGycm CONTRAST: CT chest with contrast and 3D reconstruction with MIP imaging is performed with IV Contrast, patient injected with 100, wasted 24 ml mL of Isovue 370. Contrast-enhanced CT of the chest was performed through the course of the pulmonary arteries with alissa g and mediastinal window settings submitted. 3D reconstruction with MIP imaging was also performed. PULMONARY ARTERIES: The pulmonary arteries and their major tributaries are patent. I do not see jourdan dence for sizable filling defect to suggest pulmonary embolic process. LUNGS: The lungs are clear and free of infiltrate. No evidence for atelectasis. No pulmonary nodule or mass is detected. No pleural effusion. MEDIASTINUM: Thoracic aorta is of normal caliber,however, evaluation is limited given timing of the contrast bolus. If there is concern for thoracic aortic pathology consider SANTOS. Correlate clinicall y . The heart is not enlarged. No evidence for mediastinal mass. No mediastinal lymph nodes greater than 1cm. HILAR STRUCTURES: No evidence for mass. No hilar lymph nodes greater than 1 cm. UPPER ABDOMEN: No significant abnormality is seen. IMPRESSION: 1. No evidence for Pulmonary embolism at this time.
== END | disposition home or self-care (01) ==
LOC: RADCTMAIN 08:43
PROVIDERS: ATTEND Internal Medicine Critical Care Medicine
DX: I27.20 Pulmonary hypertension, unspecified (principal)
CPT/HCPCS: 94726; 94729; 94060; 71275; Q9967

== ENCOUNTER 2020-10-29 08:11 | Emergency (ER) | payer OTHER ==
[2020-10-29 08:15] VITALS: BP 135/83; PULSE 107; RESP 18; TEMP 98
--- NOTE | 2020-10-29 08:36 | ED ---
General Adult HPI - General Chief complaint: Dental/Oral Stated complaint: dental infection Time Seen by Provider: 10/29/20 08:19 Source: patient, RN notes reviewed Mode of arrival: ambulatory Limitations: no limitations - History of Present Illness Initial comments: Patient is a pleasant 49-year-old female presenting to the emergency department with concerns for dental infection. Onset of symptoms was over a week ago. Patient took antibiotics with improvement of symptoms. Symptoms started worsening again 2 days ago. Patient did see her dentist yesterday and started again with antibiotics. Patient is unclear which antibiotic she was on and which antibiotics she is currently on. Patient called her dentist again and was advised come to the emergency department. No fevers. Patient is tolerating oral intake. No dyspnea. - Related Data Home Medications Medication Instructions Recorded Confirmed Butalb/APAP/Caff 50-325-40Mg 1 tab PO BID PRN 06/24/20 06/24/20 [Fioricet 50-325-40] Metoprolol Tartrate [Lopressor] 12.5 mg PO DAILY 06/24/20 06/24/20 Allergies Allergy/AdvReac Type Severity Reaction Status Date / Time imipramine Allergy Rash/Hives Verified 10/29/20 08:15 Review of Systems ROS Statement: Those systems with pertinent positive or pertinent negative responses have been documented in the HPI. ROS Other: All systems not noted in ROS Statement are negative. Constitutional: Denies: fever Eyes: Denies: eye pain ENT: Reports: dental pain. Denies: ear pain Respiratory: Denies: cough, dyspnea Cardiovascular: Denies: chest pain Endocrine: Denies: fatigue Gastrointestinal: Denies: abdominal pain Genitourinary: Denies: dysuria Past Medical History Past Medical History: No Reported History Additional Past Medical History / Comment(s): pseudotumor History of Any Multi-Drug Resistant Organisms: None Reported Past Surgical History: Cholecystectomy Additional Past Surgical History / Comment(s): fallopian tube and ovary removed, ectopic pregnacy, D&C, ovarian cyst drained. colonoscopy. Past Anesthesia/Blood Transfusion Reactions: Postoperative Nausea & Vomiting (PONV) Past Psychological History: Bipolar, Depression, PTSD Smoking Status: Current every day smoker Past Alcohol Use History: Occasional Past Drug Use History: None Reported - Past Family History Mother Family Medical History: Cancer, Renal Disease Additional Family Medical History / Comment(s): kidney ca Father Family Medical History: Hypertension, Myocardial Infarction ([place]) Additional Family Medical History / Comment(s): heart problems Brother(s) Family Medical History: Myocardial Infarction ([place]) Sister(s) Additional Family Medical History / Comment(s): Patient has one half-sister with no major medical problems. Daughter(s) Additional Family Medical History / Comment(s): Patient has 4 children, 3 daughters and 1 son with no major medical problems. General Exam Limitations: no limitations General appearance: alert, in no apparent distress Head exam: Present: atraumatic Eye exam: Present: normal appearance ENT exam: Present: other (Left lower premolar with decay/broken tooth. Patient has associated abscess laterally.) Neck exam: Present: normal inspection. Absent: tenderness Respiratory exam: Present: normal lung sounds bilaterally Cardiovascular Exam: Present: regular rate, normal rhythm GI/Abdominal exam: Present: soft. Absent: tenderness Extremities exam: Present: normal inspection Neurological exam: Present: alert Psychiatric exam: Present: normal affect, normal mood Skin exam: Present: normal color Course Vital Signs 10/29/20 08:12 Temperature 98.0 F Pulse Rate 107 H Respiratory 18 Rate Blood Pressure 135/83 O2 Sat by Pulse 98 Oximetry Procedures - Procedures Initial comment: Patient was set up for I&D abscess of tooth. Prior to lidocaine injection pus did start coming out with expression with tongue depressor. This was continued with large amount of pus, approximately 3-4 mL. Area continues to drain. Secondary to this incision and drain was not completed using anesthesia or scalpel. Disposition Clinical Impression: Dental abscess Disposition: HOME SELF-CARE Condition: Stable Instructions (If sedation given, give patient instructions): Dental Abscess (ED) Additional Instructions: Please do follow-up with your dentist in the next day or 2 for recheck. Please also follow-up to primary care physician in the next day or 2 for recheck. Return for fevers, increased swelling, pain, worsening symptoms or other concerns. Continue antibiotics. Is patient prescribed a controlled substance at d/c from ED?: No Referrals: Domingo Sauceda DO [Primary Care Provider] - 1-2 days Time of Disposition: 09:01
[2020-10-29] MEDS: LIDOCAINE 1% INJ 10MG/ML (20 ML MDV) SQ ONE ×2 (08:37→08:57)
[2020-10-29] MEDS ORDERED: traMADol 50 MG STARTER PACK 3 TAB BTL PO STA (09:01)
== END 2020-10-29 09:11 | disposition home or self-care (01) ==
LOC: EC 08:11
DX: K04.7 Periapical abscess without sinus (principal); F17.200 Nicotine dependence, unspecified, uncomplicated; Z88.8 Allergy status to other drugs, medicaments and biological substances
CPT/HCPCS: 41800; 99282

== ENCOUNTER → 2020-11-25 | Outpatient (CLI) | payer OTHER | END | disposition home or self-care (01) | LOC: LABWHC1 14:28 | PROVIDERS: ATTEND Nurse Practitioner Family | DX: Z20.822 Contact with and (suspected) exposure to COVID-19 (principal) | CPT/HCPCS: 87635; C9803 ==

== ENCOUNTER → 2020-12-09 | Outpatient (CLI) | payer OTHER ==
--- NOTE | 2020-12-09 18:48 | US ---
EXAMINATION TYPE: US thyroid st tissue head/neck DATE OF EXAM: 12/09/2020 COMPARISON: NONE CLINICAL HISTORY: 50-year-old female R59.0 Localized enlarged lymph nodes. Palpable nodes upper media l neck before today's US. GLAND SIZE: Right Lobe: 4.7 x 1.4 x 1.5 cm Overall Parenchyma: homogenous Left Lobe: 3.9 x 1.5 x 1.3 cm Overall Parenchyma: homogeneous Isthmus Thickness: 0.3 cm NODULES RIGHT: # of nodules measured on right: 0 LEFT: # of nodules measured on left: 1 1. 0.4 X 0.6 x 0.3 cm, upper mid pole, almost completely solid, isoechoic nodule, which is wider t allison tall, with ill-defined margins, without echogenic foci. ISTHMUS: # of nodules measured in the isthmus: 0 Network Intelligence Analyst notes: Bilateral neck scanned: superior to right thyroid lobe, there are a couple lymph n odes demonstrated, larger node measures 1.2 x 1.2 x 0.6cm; a couple of left upper neck nodes are see n with largest measuring 1.2 x 1.5 x 0.7cm. IMPRESSION: 1. A small, solitary nonspecific TR4 nodule on the left measuring 6 mm. Follow-up may be considered. 2. Borderline enlarged upper cervical lymph nodes measuring up to 1.2 cm short axis. Findings may be reactive/post inflammatory. Clinical follow-up is recommended. If any progressive enlargement, these nodes can be reimaged.
== END | disposition home or self-care (01) ==
LOC: RADUSWWP 12:59
PROVIDERS: ATTEND Family Medicine
DX: R59.0 Localized enlarged lymph nodes (principal); E04.1 Nontoxic single thyroid nodule
CPT/HCPCS: 76536

== ENCOUNTER → 2021-01-02 | Outpatient (CLI) | payer OTHER ==
--- NOTE | 2021-01-02 15:23 | CT ---
EXAMINATION TYPE: CT soft tissue neck wo con DATE OF EXAM: 01/02/2021 COMPARISON: None HISTORY: tyroid nodule CT DLP: [address] of the neck was performed from the skull base through the lung apices. AIRWAY: The koo praglottic, glottic, and subglottic portions of the airway appear patent and free of mass. SALIVARY GLANDS: The submandibular and parotid glands are free of mass or inflammatory process. THYROID GLAND: 6 mm solid nodule left thyroid lobe. No additional nodules seen with certainty. LYMPH NODES: No adenopathy seen greater than 1cm. LUNG APICES: No nodule or mass is seen. OTHER: Vascular structures are patent. No significant degenerative change of the cervical spine. N o abscess seen. IMPRESSION: 6 mm solid nodule left thyroid lobe. No additional nodules seen with certainty.
== END | disposition home or self-care (01) ==
LOC: RADCTMAIN 14:40
PROVIDERS: ATTEND Family Medicine
DX: E04.1 Nontoxic single thyroid nodule (principal)
CPT/HCPCS: 70490

== ENCOUNTER → 2021-02-04 | Outpatient (CLI) | payer OTHER ==
--- NOTE | 2021-02-04 09:24 | US ---
EXAMINATION TYPE: US pelvis complete transvag DATE OF EXAM: 02/04/2021 COMPARISON: 2009 CLINICAL HISTORY: N95.0 POST MENOPAUSAL BLEEDING. Right oophorectomy approx. 15 years ago TECHNIQUE: Transvaginal (TV) and Transabdominal (TA) . Transabdominal sonographic images of the pel vis were acquired. Transvaginal sonographic images were medically necessary to better assess the fol lowing anatomy: Endometrium Date of LMP: 6 years ago EXAM MEASUREMENTS: Uterus: 8.0x4.8x5.0 cm Endometrial Stripe: 0.6 cm Right Ovary: Surgically absent Left Ovary: 2.7x1.9x2.3 cm Nabothian cysts seen in the cervix. 1. Uterus: Anteverted Some vascular calcifications seen. 2. Endometrium: wnl 3. Right Ovary: Surgically absent 4. Left Ovary: Follicle seen measuring 1.7x1.3x1.5cm 5. Bilateral Adnexa: Free fluid seen adjacent the left ovary. 6. Posterior cul-de-sac: wnl IMPRESSION: 1. Left ovarian cyst. Small amount of free fluid is adjacent to the left ovary. Follow-up exam in 6 w eeks to reevaluate these findings.
== END | disposition home or self-care (01) ==
LOC: RADUSWWP 08:24
PROVIDERS: ATTEND Obstetrics & Gynecology
DX: N83.202 Unspecified ovarian cyst, left side (principal)
CPT/HCPCS: 76830; 76856

== ENCOUNTER → 2021-02-25 | Outpatient (CLI) | payer OTHER ==
[2021-02-25 16:07] LABS: Basophils # (A) 0.1 k/uL (0-0.2); Basophils % (A) 1 %; Eosinophils # (A) 0.2 k/uL (0-0.7); Eosinophils % (A) 2 %; HCT 39.5 % (34.0-46.0); Lymphocytes # (A) 3.5 k/uL (1.0-4.8); Lymphocytes % (A) 34 %; MCH 31.6 pg (25.0-35.0); MCV 95.8 fL (80.0-100.0); Monocytes # (A) 0.5 k/uL (0-1.0); Monocytes % (A) 5 %; Neutrophils % (A) 57 %; Platelet Count 480 k/uL (150-450); RBC 4.12 m/uL (3.80-5.40); RDW 13.3 % (11.5-15.5); WBC 10.5 k/uL (3.8-10.6)
== END | disposition home or self-care (01) ==
LOC: LABPAT 15:19
PROVIDERS: ATTEND Obstetrics & Gynecology
DX: Z01.812 Encounter for preprocedural laboratory examination (principal)
CPT/HCPCS: 85025

== ENCOUNTER 2021-03-04 06:57 | Day surgery (SDC) | payer OTHER ==
[2021-02-28 15:27] VITALS: BMI 35.3
--- NOTE | 2021-02-28 17:15 | P.HPOB ---
History of Present Illness H&P Date: 02/28/21 Chief Complaint: Postmenopausal bleeding Tootie is a 50-year-old female who has a uterine lining of 0.6 and years despite being postmenopausal. She is scheduled for D&C with hysteroscopy to rule out neoplasia/cancer. Risks/benefits/alternatives to this procedure were reviewed with the patient in detail and all questions were answered for her prior to proceeding to the operative room. On physical exam vital signs are stable and afebrile. Heart regular, lungs clear, extremities without pain. Abdomen soft and pelvic exam is otherwise unremarkable. Assessment post menopausal bleeding. Plan D&C with hysteroscopy. Past Medical History Past Medical History: No Reported History Additional Past Medical History / Comment(s): pseudotumor CEREBRI. TACHYCARDIA. MILD PULMONARY HTN. POST MENOPAUSAL BLEEDING History of Any Multi-Drug Resistant Organisms: None Reported Past Surgical History: Cholecystectomy Additional Past Surgical History / Comment(s): HAD LUMBAR PUNCTURE TO DRAIN CSF 02/25/21. HAD A LEAK AND NEEDED BLOOD PATCH 02/27/21. fallopian tube and ovary removed, ectopic pregnacy, D&C, ovarian cyst drained. colonoscopy. Past Anesthesia/Blood Transfusion Reactions: Postoperative Nausea & Vomiting (PONV) Smoking Status: Current every day smoker - Past Family History Mother Family Medical History: Cancer, Renal Disease Additional Family Medical History / Comment(s): kidney ca Father Family Medical History: Hypertension, Myocardial Infarction ([place]) Additional Family Medical History / Comment(s): heart problems Brother(s) Family Medical History: Myocardial Infarction ([place]) Sister(s) Additional Family Medical History / Comment(s): Patient has one half-sister with no major medical problems. Daughter(s) Additional Family Medical History / Comment(s): Patient has 4 children, 3 daughters and 1 son with no major medical problems. Medications and Allergies Home Medications Medication Instructions Recorded Confirmed Type Butalb/APAP/Caff 50-325-40Mg 1 tab PO BID PRN 06/24/20 02/28/21 History [Fioricet 50-325-40] Metoprolol Tartrate [Lopressor] 25 mg PO BID 06/24/20 02/28/21 History Hydrochlorothiazide 12.5 mg PO BID 02/28/21 02/28/21 History [hydroCHLOROthiazide] Zonisamide [Zonegran] 100 mg PO HS 02/28/21 02/28/21 History acetaZOLAMIDE [Diamox] 62.5 mg PO BID 02/28/21 02/28/21 History Allergies Allergy/AdvReac Type Severity Reaction Status Date / Time imipramine Allergy Rash/Hives Verified 02/28/21 15:10 Exam Osteopathic Statement: *. No significant issues noted on an osteopathic structural exam other than those noted in the History and Physical/Consult. Intake and Output 02/28/21 02/28/21 02/28/21 06:59 14:59 22:59 Other: Weight 84.822 kg
[~2021-03-04 06:57] MED LIST: Pre Op ABX Message 1 EACH MISC MISCELLANE ONE
[2021-03-04] MEDS ORDERED: ONDANSETRON 4 MG/2 ML VIAL ONE (07:31)
[2021-03-04] MEDS ORDERED: DEXAMETHASONE SOD PHOSPHATE 4 MG/ML 1 ML VIAL IV ONE (07:40)
[2021-03-04] MEDS ORDERED: SCOPOLAMINE 1.5MG/72HR PATCH TRANSDERM ONE (07:40)
[2021-03-04] MEDS ORDERED: LACTATED RINGERS 1,000 ML IV ONE ×2 (07:40)
[2021-03-04 07:50] VITALS: TEMP 97
[2021-03-04] MEDS ORDERED: LIDOCAINE 1% INJ 10MG/ML (20 ML MDV) ONE (08:20)
[2021-03-04] MEDS ORDERED: fentaNYL (PF) 50 MCG/ML 2 ML AMP ONE (08:20)
[2021-03-04] MEDS ORDERED: MIDAZOLAM 2 MG/2 ML VIAL ONE (08:20)
[2021-03-04] MEDS ORDERED: KETOROLAC 15 MG/ML 1 ML VIAL ONE (08:20)
[2021-03-04] MEDS ORDERED: PROPOFOL 10 MG/ML 20 ML VIAL IV ONE (08:20)
--- NOTE | 2021-03-04 08:47 | P.OP ---
Date of Procedure: 03/04/21 Preoperative Diagnosis: Dysfunctional uterine bleeding Postoperative Diagnosis: Same Procedure(s) Performed: D&C with hysteroscopy Anesthesia: MAC Surgeon: Chris Miranda Estimated Blood Loss (ml): 3 IV fluids (ml): 300 Pathology: other (Uterine curettings) Condition: stable Disposition: same day Operative Findings: Pathology pending Description of Procedure: Patient was taken to the operating suite where a general anesthetic was found be adequate. She was prepped and draped in the normal sterile fashion and placed in the dorsal lithotomy position. Initially a weighted speculum inserted in the vagina and anterior lip of cervix was identified and grasped with an Allis clamp. Cervix was then dilated and camera was inserted. No gross pathology was noted. Camera was removed and sharp curettings were obtained. Scant tissue was obtained. All incidents were then removed. Sponge, lap, needle counts were all correct 2. Tissues was placed on Telfa and sent to pathology for evaluation. Patient was then taken to the recovery room in stable and satisfactory condition. Plan - Discharge Summary Discharge Rx Participant: Yes New Discharge Prescriptions: New Ibuprofen [Motrin] 600 mg PO Q6HR PRN #30 tab PRN Reason: Pain No Action Metoprolol Tartrate [Lopressor] 25 mg PO BID Butalb/APAP/Caff 50-325-40Mg [Fioricet 50-325-40] 1 tab PO BID PRN PRN Reason: Migraine Headache Zonisamide [Zonegran] 100 mg PO HS acetaZOLAMIDE [Diamox] 62.5 mg PO BID Hydrochlorothiazide [hydroCHLOROthiazide] 12.5 mg PO BID Discharge Medication List Butalb/APAP/Caff 50-325-40Mg [Fioricet 50-325-40] 1 tab PO BID PRN 06/24/20 [History] Metoprolol Tartrate [Lopressor] 25 mg PO BID 06/24/20 [History] Hydrochlorothiazide [hydroCHLOROthiazide] 12.5 mg PO BID 02/28/21 [History] Zonisamide [Zonegran] 100 mg PO HS 02/28/21 [History] acetaZOLAMIDE [Diamox] 62.5 mg PO BID 02/28/21 [History] Ibuprofen [Motrin] 600 mg PO Q6HR PRN #30 tab 03/04/21 [Rx] Follow up Appointment(s)/Referral(s): Chris Miranda DO [Doctor of Osteopathic Medicine] - 1 Week Patient Instructions/Handouts: Scopolamine (Absorbed through the skin) Activity/Diet/Wound Care/Special Instructions: No heavy lifting, limit stairs and driving, and pelvic rest. If any high temperatures, heavy bleeding, or severe pain call my office Discharge Disposition: HOME SELF-CARE
[2021-03-04 09:39] VITALS: RESP 15
[2021-03-04 09:54] VITALS: BP 119/70; PULSE 74
== END 2021-03-04 10:24 | disposition home or self-care (01) ==
LOC: OR 06:57
PROVIDERS: ATTEND Obstetrics & Gynecology
DX: N95.0 Postmenopausal bleeding (principal); N93.8 Other specified abnormal uterine and vaginal bleeding; G93.2 Benign intracranial hypertension; R00.0 Tachycardia, unspecified; I27.20 Pulmonary hypertension, unspecified; F17.200 Nicotine dependence, unspecified, uncomplicated; Z79.899 Other long term (current) drug therapy; Z88.8 Allergy status to other drugs, medicaments and biological substances; Z90.49 Acquired absence of other specified parts of digestive tract; Z98.890 Other specified postprocedural states; Z80.51 Family history of malignant neoplasm of kidney; Z82.49 Family history of ischemic heart disease and other diseases of the circulatory system
CPT/HCPCS: 81025; 88305; 58558; J2250; J1100; J2405; J2001; J3010; J1885; J2704

== ENCOUNTER 2021-04-01 14:27 | Emergency (ER) | payer OTHER ==
[2021-04-01 15:14] VITALS: BP 129/79; PULSE 81; RESP 18; TEMP 98.9
--- NOTE | 2021-04-01 15:53 | XR ---
EXAMINATION TYPE: XR elbow complete LT DATE OF EXAM: 04/01/2021 CLINICAL HISTORY: Pain from fall injury TECHNIQUE: Frontal, lateral and oblique images of the left elbow are obtained. COMPARISON: None FINDINGS: There is no acute fracture/dislocation evident in the last elbow. No abnormal fat pad sig ns are seen. [id number] ulnohumeral spurring . The overlying soft tissue appears unremarkable. IMPRESSION: There is no acute fracture or dislocation in the left elbow.
--- NOTE | 2021-04-01 17:28 | ED ---
Upper Extremity HPI - General Chief Complaint: Extremity Injury, Upper Stated Complaint: Extremity Injury,Left Elbow Time Seen by Provider: 04/01/21 17:09 Source: patient, RN notes reviewed Mode of arrival: ambulatory Limitations: no limitations - History of Present Illness Initial Comments: Patient is a 50-year-old female that presents to the emergency department complaining of left elbow pain. She notes she slipped in her kitchen and landed on her elbow. She given the emergency room to get evaluated for any possible fractures. She notes she does have full range of motion. She notes the pain is very mild unless in certain positions. She denied any other issues or complaints. She was otherwise well-appearing. She denied chest pain shortness of breath headache nausea vomiting diarrhea constipation fever fatigue chills. - Related Data Home Medications Medication Instructions Recorded Confirmed Butalb/APAP/Caff 50-325-40Mg 1 tab PO BID PRN 06/24/20 02/28/21 [Fioricet 50-325-40] Metoprolol Tartrate [Lopressor] 25 mg PO BID 06/24/20 02/28/21 Hydrochlorothiazide 12.5 mg PO BID 02/28/21 02/28/21 [hydroCHLOROthiazide] Zonisamide [Zonegran] 100 mg PO HS 02/28/21 02/28/21 acetaZOLAMIDE [Diamox] 62.5 mg PO BID 02/28/21 02/28/21 Previous Rx's Medication Instructions Recorded Ibuprofen [Motrin] 600 mg PO Q6HR PRN #30 tab 03/04/21 Allergies Allergy/AdvReac Type Severity Reaction Status Date / Time imipramine Allergy Rash/Hives Verified 04/01/21 15:12 Review of Systems ROS Statement: Those systems with pertinent positive or pertinent negative responses have been documented in the HPI. ROS Other: All systems not noted in ROS Statement are negative. Past Medical History Past Medical History: No Reported History Additional Past Medical History / Comment(s): pseudotumor History of Any Multi-Drug Resistant Organisms: None Reported Past Surgical History: Cholecystectomy Additional Past Surgical History / Comment(s): fallopian tube and ovary removed, ectopic pregnacy, D&C, ovarian cyst drained. colonoscopy. Past Anesthesia/Blood Transfusion Reactions: Postoperative Nausea & Vomiting (PONV) Past Psychological History: Bipolar, Depression, PTSD Smoking Status: Current every day smoker Past Alcohol Use History: Occasional Past Drug Use History: None Reported - Past Family History Mother Family Medical History: Cancer, Renal Disease Additional Family Medical History / Comment(s): kidney ca Father Family Medical History: Hypertension, Myocardial Infarction ([place]) Additional Family Medical History / Comment(s): heart problems Brother(s) Family Medical History: Myocardial Infarction ([place]) Sister(s) Additional Family Medical History / Comment(s): Patient has one half-sister with no major medical problems. Daughter(s) Additional Family Medical History / Comment(s): Patient has 4 children, 3 daughters and 1 son with no major medical problems. General Exam Limitations: no limitations General appearance: alert, in no apparent distress, obese Head exam: Present: atraumatic, normocephalic, normal inspection Eye exam: Present: normal appearance, PERRL, EOMI. Absent: scleral icterus, conjunctival injection, periorbital swelling ENT exam: Present: normal exam, mucous membranes moist Neck exam: Present: normal inspection Respiratory exam: Present: normal lung sounds bilaterally. Absent: respiratory distress, wheezes, rales, rhonchi, stridor Cardiovascular Exam: Present: regular rate, normal rhythm, normal heart sounds. Absent: systolic murmur, diastolic murmur, rubs, gallop, clicks Left Elbow exam: Present: normal inspection, full ROM, tenderness (Distal aspect posterior side), abrasion. Absent: swelling, laceration, ecchymosis, deformity, crepitus Neurological exam: Present: alert, oriented X3 Psychiatric exam: Present: normal affect, normal mood Skin exam: Present: warm, dry, intact, normal color. Absent: rash Course Vital Signs 04/01/21 15:12 Temperature 98.9 F Pulse Rate 81 Respiratory 18 Rate Blood Pressure 129/79 O2 Sat by Pulse 95 Oximetry Medical Decision Making - Medical Decision Making 50-year-old female complaining of left elbow pain after falling. X-ray left elbow ordered. X-ray negative for any acute fractures or dislocations. Patient most likely has elbow contusion, patient is agreeable with discharge home. Case discussed with Dr. Velasco, patient discharge home. - Radiology Data Radiology results: report reviewed, image reviewed X-ray left elbow: There is no acute fracture or dislocation the left elbow. Disposition Clinical Impression: Left elbow contusion Disposition: HOME SELF-CARE Condition: Stable Instructions (If sedation given, give patient instructions): Elbow Sprain (ED) Additional Instructions: Please return to the Emergency Department if symptoms worsen or any other concerns. Follow-up with primary care 1-2 days. Take Tylenol Motrin alternating every 3 hours as needed for pain. Is patient prescribed a controlled substance at d/c from ED?: No Referrals: Domingo Sauceda DO [Primary Care Provider] - 1-2 days Time of Disposition: 17:28
== END 2021-04-01 17:42 | disposition home or self-care (01) ==
LOC: EC 14:27
DX: S50.02XA Contusion of left elbow, initial encounter (principal); F31.9 Bipolar disorder, unspecified; F43.12 Post-traumatic stress disorder, chronic; F17.200 Nicotine dependence, unspecified, uncomplicated; Z90.49 Acquired absence of other specified parts of digestive tract; W01.0XXA Fall on same level from slipping, tripping and stumbling without subsequent striking against object, initial encounter
CPT/HCPCS: 99283

== ENCOUNTER → 2021-04-17 | Outpatient (CLI) | payer OTHER | END | disposition home or self-care (01) | LOC: LABWHC1 11:49 | PROVIDERS: ATTEND Family Medicine | DX: U07.1 COVID-19 (principal) | CPT/HCPCS: U0003; C9803; U0005 ==

== ENCOUNTER 2021-04-20 12:13 | Emergency (ER) | payer OTHER ==
[2021-04-20 13:11] VITALS: RESP 18
[2021-04-20] MEDS ORDERED: ACETAMINOPHEN TAB 325 MG TAB PO STA (13:46)
[2021-04-20] MEDS ORDERED: ONDANSETRON 4 MG/2 ML VIAL IVP STA (13:46)
[2021-04-20] MEDS ORDERED: SODIUM CHLORIDE 0.9% 1,000 ML IV ONE (13:46)
--- NOTE | 2021-04-20 13:46 | ED ---
General Adult HPI - General Chief complaint: Upper Respiratory Infection Stated complaint: Weakness,N/V Time Seen by Provider: 04/20/21 13:30 Source: patient, family, RN notes reviewed Mode of arrival: ambulatory Limitations: no limitations - History of Present Illness Initial comments: 50-year-old female alert and oriented 4, presents to the emergency room with complaints of testing positive for coronavirus 2 days ago. She states her symptoms are getting worse. Her primary care doctor told her to come to the emergency room for monoclonal antibody infusion. Patient does have a history of pulmonary hypertension states that her symptoms started 6 days ago with congestion, cough, headache and shortness of breath. Today she developed nausea and diarrhea. -: days(s) (6) Location: head, chest Severity scale (1-10): 5 Quality: aching Consistency: constant Improves with: none Worsens with: none Associated Symptoms: cough, fever/chills, headaches, malaise, nausea/vomiting, shortness of breath, other (diarrhea) Treatments Prior to Arrival: none - Related Data Home Medications Medication Instructions Recorded Confirmed Butalb/APAP/Caff 50-325-40Mg 1 tab PO BID PRN 06/24/20 04/20/21 [Fioricet 50-325-40] Metoprolol Tartrate [Lopressor] 25 mg PO BID 06/24/20 04/20/21 Hydrochlorothiazide 12.5 mg PO BID 02/28/21 04/20/21 [hydroCHLOROthiazide] Zonisamide [Zonegran] 100 mg PO HS 02/28/21 04/20/21 Zinc 50 mg PO DAILY 04/20/21 04/20/21 Allergies Allergy/AdvReac Type Severity Reaction Status Date / Time imipramine Allergy Rash/Hives Verified 04/20/21 15:14 Review of Systems ROS Statement: Those systems with pertinent positive or pertinent negative responses have been documented in the HPI. ROS Other: All systems not noted in ROS Statement are negative. Past Medical History Past Medical History: Hypertension Additional Past Medical History / Comment(s): pseudotumor History of Any Multi-Drug Resistant Organisms: None Reported Past Surgical History: Cholecystectomy Additional Past Surgical History / Comment(s): fallopian tube and ovary removed, ectopic pregnacy, D&C, ovarian cyst drained. colonoscopy. Past Anesthesia/Blood Transfusion Reactions: Postoperative Nausea & Vomiting (PONV) Past Psychological History: Bipolar, Depression, PTSD Smoking Status: Current every day smoker Past Alcohol Use History: Occasional Past Drug Use History: None Reported - Past Family History Mother Family Medical History: Cancer, Renal Disease Additional Family Medical History / Comment(s): kidney ca Father Family Medical History: Hypertension, Myocardial Infarction ([place]) Additional Family Medical History / Comment(s): heart problems Brother(s) Family Medical History: Myocardial Infarction ([place]) Sister(s) Additional Family Medical History / Comment(s): Patient has one half-sister with no major medical problems. Daughter(s) Additional Family Medical History / Comment(s): Patient has 4 children, 3 daughters and 1 son with no major medical problems. General Exam Limitations: no limitations General appearance: alert, in no apparent distress Head exam: Present: atraumatic, normocephalic, normal inspection Eye exam: Present: normal appearance, EOMI. Absent: scleral icterus, conjunctival injection, periorbital swelling ENT exam: Present: normal exam, normal oropharynx, mucous membranes moist Neck exam: Present: normal inspection, full ROM. Absent: tenderness, meningismus, lymphadenopathy, thyromegaly Respiratory exam: Present: normal lung sounds bilaterally. Absent: respiratory distress, wheezes, rales, rhonchi, stridor Cardiovascular Exam: Present: regular rate, normal rhythm, normal heart sounds. Absent: systolic murmur, diastolic murmur, rubs, gallop, clicks, JVD GI/Abdominal exam: Present: soft, normal bowel sounds. Absent: distended, tenderness, guarding, rebound, rigid Extremities exam: Present: normal inspection, full ROM, normal capillary refill. Absent: tenderness, pedal edema, joint swelling, calf tenderness Back exam: Present: full ROM. Absent: tenderness, CVA tenderness (R), CVA tenderness (L) Neurological exam: Present: alert, oriented X3 Psychiatric exam: Present: normal affect, normal mood Skin exam: Present: warm, dry, intact, normal color. Absent: rash, cyanosis, diaphoretic, petechiae, pallor Course Vital Signs 04/20/21 04/20/21 13:08 16:42 Temperature 100.5 F H 99.0 F Pulse Rate 98 90 Respiratory 18 18 Rate Blood Pressure 101/68 101/62 O2 Sat by Pulse 96 95 Oximetry Medical Decision Making - Medical Decision Making This is a well-appearing 50-year-old female presents to the emergency room with a family member complaining of 6 days of congestion and difficulty breathing. She tested positive for coronavirus 2 days ago. She was told by her primary care doctor to come back to the emergency room for monoclonal antibodies infus ion which she is agreeable to. She tolerated monoclonal antibodies infusion well and vital signs are stable at discharge. She was directed to self quarantine for 10 days from symptom onset and 24 hours without fever. Take vitamin C, vitamin D and zinc for immune health. Return to the emergency room with any new or worsening symptoms. Case discussed with Dr. Walker Disposition Clinical Impression: COVID-19 Disposition: HOME SELF-CARE Condition: Good Instructions (If sedation given, give patient instructions): Coronavirus Disease 2019 (COVID-19) Additional Instructions: Increase your fluid intake. Take vitamin C, vitamin D and zinc to help with your immune system. Follow-up with your primary care doctor next week. Return to the emergency room with any new or concerning symptoms. Self quarantine for 10 days from symptom onset and 24 hours without fever. Is patient prescribed a controlled substance at d/c from ED?: No Referrals: Domingo Sauceda DO [Primary Care Provider] - 1-2 days Time of Disposition: 16:31
[2021-04-20] MEDS ORDERED: SODIUM CHLORIDE 0.9% 50 ML IVPB ONE (14:30)
[2021-04-20] MEDS ORDERED: SOTROVIMAB (EUA) 500 MG in SODIUM CHLORIDE 0.9% 100 ML IVPB ONE (14:30)
[2021-04-20] MEDS ORDERED: METOCLOPRAMIDE 5 MG/ML 2 ML VIAL IVP STA (15:36)
[2021-04-20] MEDS ORDERED: FAMOTIDINE 20 MG/2 ML VIAL IV STA (15:36)
[2021-04-20 16:43] VITALS: BP 101/62; PULSE 90; TEMP 99
== END 2021-04-20 16:45 | disposition home or self-care (01) ==
LOC: EC 12:13
DX: U07.1 COVID-19 (principal); I10 Essential (primary) hypertension; F31.9 Bipolar disorder, unspecified; F17.200 Nicotine dependence, unspecified, uncomplicated; Z79.899 Other long term (current) drug therapy
CPT/HCPCS: 99284; 96374; 96375 ×2; 96361; J2765; J2405; Q0247

== ENCOUNTER → 2021-07-07 | Outpatient (CLI) | payer OTHER ==
--- NOTE | 2021-07-07 20:56 | US ---
EXAMINATION TYPE: US thyroid st tissue head/neck DATE OF EXAM: 07/07/2021 COMPARISON: 12/09/2020 CLINICAL HISTORY: 50-year-old female E04.1 SINGLE THYROID NODULE. TECHNIQUE: Multiple sonographic images of thyroid gland are obtained. FINDINGS: GLAND SIZE: Right Lobe: 5.5 x 1.5 x 2.2 cm Overall Parenchyma: homogenous Left Lobe: 4.5 X 1.6 X 2.1 cm Overall Parenchyma: homogeneous Isthmus Thickness: 0.4 cm NODULES RIGHT: # of nodules measured on right: 0 LEFT: # of nodules measured on left: 1 1. 0.6 X 0.5 x 0.3 cm, upper mid, nodule of mixed echogenicity, which is wider than tall, with smoo th margins, without echogenic foci. Prior size: 6 x 4 x 3 mm ISTHMUS: # of nodules measured in the isthmus: 0 Distribution Agent notes: Bilateral neck scanned, Bilateral hypoechoic lymph nodes seen. Right neck lymph node measures: 1.) 1.4 x 0.8 x 0.6 cm. Left neck lymph nodes measure: 1.) 1.6 x 1.1 x 0.7 cm 2). 0.9 x 0.6 x 0.3 cm. IMPRESSION: 1. Relatively stable solitary 6 x 5 mm solid nodule in the left lobe. 2. Nonspecific thickened and hypoechoic lymph nodes in both sides of the neck are borderline in size measuring up to 1.1 cm short axis. Correlate for lymphadenitis or a reactive/post inflammatory etiolo gy. We note similar lymph nodes on 12/03/2020 with short axis measurement up to 1.2 cm. There has been slight fluctuation in size but overall stable findings since that time. Ongoing clinical and ultraso und follow-up can be performed. If any further enlargement is noted, tissue sampling can be performed .
== END | disposition home or self-care (01) ==
LOC: RADUSWWP 16:32
PROVIDERS: ATTEND Family Medicine
DX: E04.1 Nontoxic single thyroid nodule (principal)
CPT/HCPCS: 76536

== ENCOUNTER → 2021-07-10 | Outpatient (CLI) | payer OTHER ==
[2021-07-10 15:46] LABS: T4, Free (Free Thyroxine) 0.92 ng/dL (0.800-1.800)
== END | disposition home or self-care (01) ==
LOC: LABWHC1 11:03
PROVIDERS: ATTEND Internal Medicine
DX: E05.90 Thyrotoxicosis, unspecified without thyrotoxic crisis or storm (principal)
CPT/HCPCS: 36415; 84439; 84443

== ENCOUNTER → 2021-08-05 | Outpatient (CLI) | payer OTHER ==
--- NOTE | 2021-08-06 08:28 | MM ---
Reason for exam: screening (asymptomatic). Last mammogram was performed 1 year and 5 months ago. History: Patient is postmenopausal. Family history of breast cancer in maternal grandmother at age 50. Took hormonal contraceptives for 2 years beginning at age 21. Physical Findings: A clinical breast exam by your physician is recommended on an annual basis and results should be correlated with mammographic findings. MG 3D Screening Mammo W/Cad Bilateral CC and MLO view(s) were taken. Prior study comparison: March 21, 2020, bilateral MG screening mammo w CAD. May 26, 2018, bilateral MG 3d diag mammo w/cad AIME. The breast tissue is heterogeneously dense. This may lower the sensitivity of mammography. There is no discrete abnormality. ASSESSMENT: Negative, BI-RAD 1 RECOMMENDATION: Routine screening mammogram of both breasts in 1 year.
== END | disposition home or self-care (01) ==
LOC: RADMAMWWP 07:00
PROVIDERS: ATTEND Family Medicine
DX: Z12.31 Encounter for screening mammogram for malignant neoplasm of breast (principal); Z78.0 Asymptomatic menopausal state; Z80.3 Family history of malignant neoplasm of breast
CPT/HCPCS: 77063; 77067

== ENCOUNTER 2021-08-14 16:54 | Emergency (ER) | payer OTHER ==
[2021-08-14 17:19] VITALS: TEMP 98
[2021-08-14 18:24] LABS: Basophils # (A) 0.1 k/uL (0-0.2); Basophils % (A) 1 %; Eosinophils # (A) 0.2 k/uL (0-0.7); Eosinophils % (A) 2 %; HCT 43.6 % (34.0-46.0); HGB 14.4 gm/dL (11.4-16.0); Lymphocytes # (A) 1.9 k/uL (1.0-4.8); Lymphocytes % (A) 20 %; MCH 30.4 pg (25.0-35.0); MCHC 33.1 g/dL (31.0-37.0); Mean Platelet Volume 7.7; Monocytes # (A) 0.6 k/uL (0-1.0); Monocytes % (A) 6 %; Neutrophils # (A) 6.8 k/uL (1.3-7.7); Neutrophils % (A) 70 %; Platelet Count 482 k/uL (150-450); RBC 4.75 m/uL (3.80-5.40); RDW 12.7 % (11.5-15.5); WBC 9.7 k/uL (3.8-10.6)
[2021-08-14 18:33] LABS: Partial Thromboplastin Time 27.3 sec (22.0-30.0); Prothrombin Time 10.7 sec (9.0-12.0)
[2021-08-14 18:42] LABS: ALT 24 U/L (4-34); AST 28 U/L (14-36); African American GFR (CKD) >90 (>60 ml/min/1.73 sqM); Albumin 4.6 g/dL (3.5-5.0); Alkaline Phosphatase 88 U/L (38-126); Anion Gap 12 mmol/L; Blood Urea Nitrogen 15 mg/dL (7-17); Calcium 9.6 mg/dL (8.4-10.2); Carbon Dioxide 26 mmol/L (22-30); Chloride 97 mmol/L (98-107); Glucose 99 mg/dL (74-99); Lipase 57 U/L (23-300); Magnesium 2.1 mg/dL (1.6-2.3); Non-African American GFR(CKD) >90 (>60 ml/min/1.73 sqM); Sodium 135 mmol/L (137-145); Total Bilirubin 0.6 mg/dL (0.2-1.3); Total Protein 7.9 g/dL (6.3-8.2)
--- NOTE | 2021-08-14 19:08 | XR ---
EXAMINATION TYPE: XR chest 2V DATE OF EXAM: 08/14/2021 6:19 PM COMPARISON:Chest radiographs from 321 TECHNIQUE: XR chest 2V Frontal and lateral views of the chest. CLINICAL INDICATION:Female, 50 years old with history of Chest Pain; FINDINGS: Lungs/Pleura: There is no evidence of pleural effusion, focal consolidation, or pneumothorax. Pulmonary vascularity: Unremarkable. Heart/mediastinum: Cardiomediastinal silhouette is unremarkable. Musculoskeletal: No acute osseous pathology. IMPRESSION: No acute cardiopulmonary disease/process.
[2021-08-14] MEDS ORDERED: SODIUM CHLORIDE 0.9% 1,000 ML IV ONE (19:19)
[2021-08-14] MEDS ORDERED: POTASSIUM CHLORIDE 10 MEQ in WATER FOR INJECTION 1 100ML.BAG IVPB STA (19:38)
[2021-08-14] MEDS ORDERED: POTASSIUM CHLORIDE ER 20 MEQ TAB.ER PO STA (19:39)
--- NOTE | 2021-08-14 21:48 | ED ---
Chest Pain HPI - General Chief Complaint: Chest Pain Stated Complaint: Vomiting, Hand and facial numbness, chest pain Time Seen by Provider: 08/14/21 17:55 Source: patient Mode of arrival: wheelchair Limitations: no limitations - History of Present Illness Initial Comments: 50-year-old female presents to the emergency department with multiple complaints . Patient does report to presyncope, nausea, vomiting, bilateral hand and foot numbness. She states that her symptoms of chest pain, palpitations and presyncope have been occurring for years. She [facility] and Dr. Howard. Last night she had an episode where she began feeling like she was given a pass out. She became very nauseated and had a land the bathroom floor. She noted she had some numbness and tingling to her hands and feet. She denies any weakness in her extremities. She reports that majority of her symptoms have improved however still wanted to be evaluated. Reports that her assorter laundry is supposed to be sending her for a tilt table test however this has not been scheduled yet. She denies concern for . No headaches. No fevers. No sick contacts with similar symptoms. No other alleviating, Perceptin often factors - Related Data Home Medications Medication Instructions Recorded Confirmed Butalb/APAP/Caff 50-325-40Mg 1 tab PO BID PRN 06/24/20 08/14/21 [Fioricet 50-325-40] Metoprolol Tartrate [Lopressor] 50 mg PO DAILY 06/24/20 08/14/21 Hydrochlorothiazide 12.5 mg PO BID 02/28/21 08/14/21 [hydroCHLOROthiazide] Zonisamide [Zonegran] 100 mg PO HS 02/28/21 08/14/21 Albuterol Sulfate [Ventolin HFA] 2 puff INHALATION RT-Q6H PRN 08/14/21 08/14/21 Metoprolol Tartrate [Lopressor] 25 mg PO HS 08/14/21 08/14/21 Allergies Allergy/AdvReac Type Severity Reaction Status Date / Time imipramine Allergy Rash/Hives Verified 08/14/21 21:11 Review of Systems ROS Statement: Those systems with pertinent positive or pertinent negative responses have been documented in the HPI. ROS Other: All systems not noted in ROS Statement are negative. EKG Findings - EKG Comments: EKG Findings:: EKG demonstrates a sinus rhythm with a rate of 93. Pr interval of 161. QRS 121. QTC of 420. There is a Q wave in lead 3. No acute ST segment elevations or depressions. Past Medical History Past Medical History: Hypertension Additional Past Medical History / Comment(s): pseudotumor History of Any Multi-Drug Resistant Organisms: None Reported Past Surgical History: Cholecystectomy Additional Past Surgical History / Comment(s): fallopian tube and ovary removed, ectopic pregnacy, D&C, ovarian cyst drained. colonoscopy. Past Anesthesia/Blood Transfusion Reactions: Postoperative Nausea & Vomiting (PONV) Past Psychological History: Bipolar, Depression, PTSD Smoking Status: Current every day smoker Past Alcohol Use History: Occasional Past Drug Use History: None Reported - Past Family History Mother Family Medical History: Cancer, Renal Disease Additional Family Medical History / Comment(s): kidney ca Father Family Medical History: Hypertension, Myocardial Infarction ([place]) Additional Family Medical History / Comment(s): heart problems Brother(s) Family Medical History: Myocardial Infarction ([place]) Sister(s) Additional Family Medical History / Comment(s): Patient has one half-sister with no major medical problems. Daughter(s) Additional Family Medical History / Comment(s): Patient has 4 children, 3 daughters and 1 son with no major medical problems. General Exam Limitations: no limitations General appearance: alert, in no apparent distress Head exam: Present: atraumatic, normocephalic, normal inspection Eye exam: Present: normal appearance, PERRL, EOMI. Absent: scleral icterus, conjunctival injection, periorbital swelling ENT exam: Present: normal exam, mucous membranes moist Neck exam: Present: normal inspection. Absent: tenderness, meningismus, lymphadenopathy Respiratory exam: Present: normal lung sounds bilaterally. Absent: respiratory distress, wheezes, rales, rhonchi, stridor Cardiovascular Exam: Present: regular rate, normal rhythm, normal heart sounds. Absent: systolic murmur, diastolic murmur, rubs, gallop, clicks GI/Abdominal exam: Present: soft, normal bowel sounds. Absent: distended, tenderness, guarding, rebound, rigid Extremities exam: Present: normal inspection, full ROM, normal capillary refill. Absent: tenderness, pedal edema, joint swelling, calf tenderness Back exam: Present: normal inspection Neurological exam: Present: alert, oriented X3, CN II-XII intact Psychiatric exam: Present: normal affect, normal mood Skin exam: Present: warm, dry, intact, normal color. Absent: rash Course Vital Signs 08/14/21 08/14/21 08/14/21 17:16 18:43 19:18 Temperature 98 F Pulse Rate 110 H 96 Pulse Rate [ 84 [employer] ] Respiratory 18 16 18 Rate Blood Pressure 116/75 120/83 Blood Pressure 116/78 [Sitting] Blood Pressure 117/76 [Standing] Blood Pressure 121/84 [Supine] O2 Sat by Pulse 98 98 96 Oximetry 08/14/21 08/14/21 08/14/21 20:44 22:24 22:37 Temperature Pulse Rate 71 71 81 Pulse Rate [ [employer] ] Respiratory 16 18 19 Rate Blood Pressure 119/75 132/71 105/71 Blood Pressure [Sitting] Blood Pressure [Standing] Blood Pressure [Supine] O2 Sat by Pulse 97 97 99 Oximetry Chest Pain MDM - MDM On arrival patient is placed into room 24. History and physical exam is performed. IV access established and laboratories are conducted. Orthostatics are obtained and are negative. Potassium 3.0. Patient is given 20 meq of potassium iv and 40 meq by mouth. Chest x-ray demonstrates no acute intrathoracic process. CT of the brain is ordered due to her hand numbness and history of pseudotumor which demonstrates no acute process. Patient is reevaluated and laboratory studies have normalized. Patient does have chronic symptoms. Recommended that she follow up with her assorter laundry as he is a one to be ordering her tilt table test. Also recommended that she follow up with her neurologist for which he doesn't appointment next week. Instructed to return for any new or worsening symptoms. Patient agreed to treatment plan was discharged home in stable condition Disposition Clinical Impression: Chest pain, Hand paresthesia Disposition: HOME SELF-CARE Condition: Stable Instructions (If sedation given, give patient instructions): Chest Pain (ED) Additional Instructions: Please follow up with your primary care and have repeat laboratory studies drawn next week - specifically to check your potassium. Return to the emergency room for any new or worsening symptoms Is patient prescribed a controlled substance at d/c from ED?: No Referrals: Domingo Sauceda DO [Primary Care Provider] - 1-2 days Time of Disposition: 22:17
--- NOTE | 2021-08-14 22:11 | CT ---
EXAMINATION TYPE: CT brain wo con DATE OF EXAM: 08/14/2021 COMPARISON: 01/14/2020 HISTORY: Hand numbness, hx pseudotumor. CT DLP: 1100.4 mGycm Automated exposure control for dose reduction was used. Images of the brain obtained without contrast. Ventricles have normal size. There is no mass effect or midline shift. There is no sign of intracrani al hemorrhage. Calvarium is intact. Skull base is intact. There is no evidence of cerebral edema. The re is normal aeration of the mastoid sinuses. IMPRESSION: Negative unenhanced head CT scan. No change.
[2021-08-14 22:37] VITALS: BP 105/71; PULSE 81; RESP 19
== END 2021-08-14 22:37 | disposition home or self-care (01) ==
LOC: EC 16:54
DX: R07.9 Chest pain, unspecified (principal); R20.2 Paresthesia of skin; I10 Essential (primary) hypertension; F31.9 Bipolar disorder, unspecified; F17.200 Nicotine dependence, unspecified, uncomplicated; Z79.899 Other long term (current) drug therapy
CPT/HCPCS: 36415; 93005; 80053; 84443; 83690; 83735; 84484; 85025; 85610; 85730; 71046; 70450; 99285; 96360; 96361; J3480

== ENCOUNTER 2021-09-11 20:36 | Emergency (ER) | payer OTHER ==
[2021-09-11 22:16] VITALS: BP 124/71; PULSE 93; RESP 20; TEMP 98.3
--- NOTE | 2021-09-11 22:45 | XR ---
EXAMINATION TYPE: XR chest 2V DATE OF EXAM: 09/11/2021 COMPARISON: 08/14/2021 HISTORY: Chest pain cough TECHNIQUE: FINDINGS: Heart and mediastinum are normal. Lungs are clear. Diaphragm is normal. Bony thorax appears normal. IMPRESSION: Normal chest. No change.
--- NOTE | 2021-09-12 01:33 | ED ---
Headache HPI - General Chief Complaint: Headache Stated Complaint: Consistant Cough felt pop in head, pain Time Seen by Provider: 09/12/21 01:22 Source: RN notes reviewed Mode of arrival: ambulatory Limitations: no limitations - History of Present Illness Initial Comments: This is a pleasant 50-year-old female with a history of hypertension and pseudotumor cerebri. Patient presents to the emergency room today complaining of headache which has been present for about 1 week. Patient states she developed a cough about one month ago.Patient states that she actually started coughing one month ago. She was seen by her regular doctor and put on Zithromax. Patient finished this and there is no improvement. Patient had upgoing to urgent care and was put on Tessalon Perles. Also no improvement. Patient had a negative COVID-19 test at the beginning of the illness. Patient states she was exposed to her grandchildren who had a fever. Patient's cough has been nonproductive. She states any time she coughs she is getting some pain near the occipital protuberance on the left side. She also states that leaning her head forward exacerbates this pain. Patient does have pseudotumor cerebri but states this is different from headaches she had in the past. no fever or chills, no changes in vision or hearing, no sore throat or difficulty with speech, no neck pain, no chest pain or shortness of breath, no abdominal pain, no nausea or vomiting, no changes in urination or bowel movements, no numbness or tingling, no extremity pain, no skin rashes or lesions. MD Complaint: headache - Related Data Home Medications Medication Instructions Recorded Confirmed Butalb/APAP/Caff 50-325-40Mg 1 tab PO BID PRN 06/24/20 08/14/21 [Fioricet 50-325-40] Metoprolol Tartrate [Lopressor] 50 mg PO DAILY 06/24/20 08/14/21 Hydrochlorothiazide 12.5 mg PO BID 02/28/21 08/14/21 [hydroCHLOROthiazide] Zonisamide [Zonegran] 100 mg PO HS 02/28/21 08/14/21 Albuterol Sulfate [Ventolin HFA] 2 puff INHALATION RT-Q6H PRN 08/14/21 08/14/21 Metoprolol Tartrate [Lopressor] 25 mg PO HS 08/14/21 08/14/21 Previous Rx's Medication Instructions Recorded predniSONE 50 mg PO DAILY #4 tab 09/12/21 Allergies Allergy/AdvReac Type Severity Reaction Status Date / Time imipramine Allergy Rash/Hives Verified 09/11/21 22:17 Review of Systems ROS Statement: Those systems with pertinent positive or pertinent negative responses have been documented in the HPI. ROS Other: All systems not noted in ROS Statement are negative. Past Medical History Past Medical History: Hypertension Additional Past Medical History / Comment(s): pseudotumor History of Any Multi-Drug Resistant Organisms: None Reported Past Surgical History: Cholecystectomy Additional Past Surgical History / Comment(s): fallopian tube and ovary removed, ectopic pregnacy, D&C, ovarian cyst drained. colonoscopy. Past Anesthesia/Blood Transfusion Reactions: Postoperative Nausea & Vomiting (PONV) Past Psychological History: Bipolar, Depression, PTSD Smoking Status: Current every day smoker Past Alcohol Use History: Occasional Past Drug Use History: None Reported - Past Family History Mother Family Medical History: Cancer, Renal Disease Additional Family Medical History / Comment(s): kidney ca Father Family Medical History: Hypertension, Myocardial Infarction ([place]) Additional Family Medical History / Comment(s): heart problems Brother(s) Family Medical History: Myocardial Infarction ([place]) Sister(s) Additional Family Medical History / Comment(s): Patient has one half-sister with no major medical problems. Daughter(s) Additional Family Medical History / Comment(s): Patient has 4 children, 3 daughters and 1 son with no major medical problems. General Exam Limitations: no limitations General appearance: alert, in no apparent distress Head exam: Present: atraumatic, normocephalic, normal inspection Eye exam: Present: normal appearance, PERRL, EOMI. Absent: scleral icterus, conjunctival injection, periorbital swelling ENT exam: Present: normal exam, normal oropharynx, mucous membranes moist, TM's normal bilaterally, normal external ear exam. Absent: mucous membranes dry Neck exam: Present: normal inspection, full ROM. Absent: tenderness, meningismus, lymphadenopathy Respiratory exam: Present: normal lung sounds bilaterally. Absent: respiratory distress, wheezes, rales, rhonchi, stridor Cardiovascular Exam: Present: regular rate, normal rhythm, normal heart sounds. Absent: systolic murmur, diastolic murmur, rubs, gallop, clicks GI/Abdominal exam: Present: soft, normal bowel sounds. Absent: distended, tenderness, guarding, rebound, rigid Extremities exam: Present: normal inspection, full ROM, normal capillary refill. Absent: tenderness, pedal edema, joint swelling, calf tenderness Back exam: Present: normal inspection Neurological exam: Present: alert, oriented X3, CN II-XII intact Psychiatric exam: Present: normal affect, normal mood Skin exam: Present: warm, dry, intact, normal color. Absent: rash Course Vital Signs 09/11/21 22:12 Temperature 98.3 F Pulse Rate 93 Respiratory 20 Rate Blood Pressure 124/71 O2 Sat by Pulse 96 Oximetry - Reevaluation(s) Reevaluation #1: 09/12/21 03:12 Medical record is reviewed Symptoms are improved here in the emergency department Patient is informed of results and questions answered Patient in no distress Procedures - Smoking Cessation Time Spent Discussing Smoking Cessation w/Patient (Minutes): 3 Patient Acknowledges Need for Cessation: Yes Medical Decision Making - Medical Decision Making Patient reevaluated prior to discharge and is in no distress. Patient computed tomography scan shows no acute findings other than right ethmoid sinusitis which is likely not infectious in etiology given the patient's presentation. We'll treat the patient for ALLERGIC rhinitis and she as that she has had some popping and pressure in her ears. Cough may be related to ALLERGIC etiology as well. Patient is a cigarette smoker. Patient was counseled on smoking cessation for greater than 3 minutes. Patient was told to return to the ER for any signs or symptoms worsen. Told to return immediately if any other problems arise. All questions answered. Treatment plan discussed. Patient in agreement Every effort has been made to ensure accuracy of this dictation. However, due to the limitations of electronic medical records and dictation devices, errors in charting still occur. Supervising physician is Dr. Ryan - Lab Data Lab Results 09/12/21 Range/Units 01:51 Coronavirus (PCR) Not Detected (Not Detectd) - Radiology Data Radiology results: report reviewed, image reviewed Disposition Clinical Impression: Cough, Headache, Allergic cough, Cigarette smoker Disposition: HOME SELF-CARE Condition: Good Instructions (If sedation given, give patient instructions): Acute Headache (ED), Allergies (ED), How to Stop Smoking (ED) Additional Instructions: Make a follow-up appointment with your regular physician. Try Zyrtec or Claritin as discussed. You can use inhaler, 2 puffs every 4 hours. Follow-up with your regular physician as directed. Return to the ER immediately if any symptoms worsen, new symptoms arise, or any other problems develop. Is patient prescribed a controlled substance at d/c from ED?: No Referrals: Domingo Sauceda DO [Primary Care Provider] - 1-2 days Time of Disposition: 03:14
--- NOTE | 2021-09-12 02:09 | CT ---
EXAMINATION TYPE: CT brain wo con DATE OF EXAM: 09/12/2021 COMPARISON: 08/14/2021 HISTORY: Headache CT DLP: 1055.40 mGycm Automated exposure control for dose reduction was used. Images obtained of the brain without contrast. Ventricles and sulci appear normal. There is no mass effect or midline shift. There is no sign of int racranial hemorrhage. Calvarium is intact. There is mucosal thickening right maxillary sinus. There i s mucosal thickening right-sided ethmoid sinus. No evidence of bone destruction. IMPRESSION: Negative CT scan of the brain. There is right-sided sinusitis which is new compared to the old exam.
[2021-09-12] MEDS ORDERED: predniSONE 50 MG TAB PO STA (03:12)
== END 2021-09-12 03:40 | disposition home or self-care (01) ==
LOC: EC 20:36
DX: F17.210 Nicotine dependence, cigarettes, uncomplicated (principal); R05.8 Other specified cough; R51.9 Headache, unspecified; I10 Essential (primary) hypertension; Z88.8 Allergy status to other drugs, medicaments and biological substances; Z79.899 Other long term (current) drug therapy; Z20.822 Contact with and (suspected) exposure to COVID-19
CPT/HCPCS: 70450; 71046; 87635; 99284

== ENCOUNTER → 2022-01-28 | Outpatient (CLI) | payer OTHER ==
--- NOTE | 2022-01-28 17:05 | US ---
EXAMINATION TYPE: US thyroid st tissue head/neck DATE OF EXAM: 01/28/2022 COMPARISON: US thyroid July 07, 2021 CLINICAL HISTORY: E04.1 THYROID NODULE. GLAND SIZE: Right Lobe: 4.1 x 2.2 x 1.6 cm Overall Parenchyma: homogenous Left Lobe: 4.9 x 1,7 x 1,5 cm Overall Parenchyma: homogeneous Isthmus Thickness: 0.4 cm NODULES RIGHT: # of nodules measured on right: 1 LEFT: # of nodules measured on left: 1 1. 0.6 X 0.3 x 0.5 cm, upper, mixed cystic and solid, anechoic nodule, which is wider than tall, wi th smooth margins, without echogenic foci. Prior size:0.6 X 0.5 x 0.3cm ISTHMUS: # of nodules measured in the isthmus: 0 Bilateral neck scanned, no evidence of lymphadenopathy. Homogeneous normal-sized thyroid redemonstrated with stable small left-sided nodule noted. A palpable abnormality right submandibular region there is a 9 x 6 mm oval structure felt to reflect prominent lymph node. IMPRESSION: As above. No suspicious enlarging nodules.
== END | disposition home or self-care (01) ==
LOC: RADUSWWP 15:34
PROVIDERS: ATTEND Family Medicine
DX: E04.1 Nontoxic single thyroid nodule (principal)
CPT/HCPCS: 76536

== ENCOUNTER → 2022-02-20 | Outpatient (CLI) | payer OTHER ==
--- NOTE | 2022-02-20 11:08 | CA ---
Stress Echo Report Jeanette Calvillo Age: 51 Gender: F : 1970 Exam Date: 02/20/2022 09:46 Exam Location: [facility] Ht (in): 60 Wt (lb): 180 Ordering Physician: Domingo Sauceda DO Referring Physician: Melanie Simons Ammonium Sulfate Operator: PEG Technologist Procedure CPT: Indication: R55 Syncope ICD-9 Codes: Rhythm: Patient History: PALPITATIONS, HTN, FAMILY HX OF HEART DISEASE, CURRENT SMOKER (0.5 PPD X 16 YRS) Cardiac Medications: METOPROLOL, HZTZ Medications in past 24 hours: Contrast: Stress Results Protocol: Amador Total dose(mL): Exercise Duration (min:sec): Max ST Depression (mm): Angina Score: Wong Score: METS: 9.3 Resting HR: 92 Resting BP: 100 / 67 Peak HR: 156 Peak BP: 202 / 106 Max Predicted HR: 170 92 % Max Predicted HR Target HR: 145 Double Product: [id number] Stress Summary: BP Response: Reason for Termination: MAX EXERTION/TARGET HR Cardiac Symptoms: CHEST PRESSURE,DIFFICULTY IN BREATHING ECG Analysis Resting ECG: Stress ECG: Arrhythmia: Echo Analysis Resting Echo: Peak Echo Analysis: MEASUREMENTS (Male/Female) Normal Values CONCLUSIONS Excellent exercise tolerance. The patient exercised for 8 minutes on Amador protocol Normal EKG in response to exercise Normal echocardiogram in response to exercise Essentially normal stress test for the patient Dr. Kaz Barbosa MD (Electronically Signed) Final Date: 20 February 2022 11:07
== END | disposition home or self-care (01) ==
LOC: RADNMMAIN 09:17
PROVIDERS: ATTEND Family Medicine
DX: R55 Syncope and collapse (principal); F17.210 Nicotine dependence, cigarettes, uncomplicated
CPT/HCPCS: 93351

== ENCOUNTER → 2022-04-22 | Outpatient (CLI) | payer OTHER | END | disposition home or self-care (01) | LOC: LABWHC1 15:55 | PROVIDERS: ATTEND Nurse Practitioner | DX: R00.2 Palpitations (principal) | CPT/HCPCS: 36415; 84443 ==

== ENCOUNTER → 2022-11-25 | Outpatient (CLI) | payer OTHER ==
--- NOTE | 2022-11-25 12:32 | MM ---
Reason for Exam: Screening (asymptomatic). Last mammogram was performed 1 year(s) and 4 month(s) ago. Patient History: Menarche at age 14. First Full-Term at age 18. Right ovary removed at age 35. Postmenopausal. Patient has history of breast feeding. Hormonal Contraceptives for 2 years from age 21 until age 23. Maternal grandmother had breast cancer, age 50. Risk Values: Analisa 5 year model risk: 0.7%. NCI Lifetime model risk: 6.4%. Prior Study Comparison: 05/26/2018 Bilateral Diagnostic Mammogram, [facility]. 03/21/2020 Bilateral Screening Mammogram, [facility]. 08/05/2021 Bilateral Screening Mammogram, [facility]. Tissue Density: There are scattered fibroglandular densities. Findings: Analyzed By CAD. There is no suspicious group of microcalcifications or new suspicious mass in either breast. Overall Assessment: Negative, BI-RAD 1 Management: Screening Mammogram of both breasts in [address] [facility] will attempt to contact patient to return for supplemental views and ultrasound if indicated. Patient should continue monthly self-breast exams. A clinical breast exam by your physician is recommended on an annual basis. This exam should not preclude additional follow-up of suspicious palpable abnormalities. Note on Analisa scores and lifetime risk: 1. A Analisa score greater than 3% is considered moderate risk. If this is the case, consider specialist referral to assess eligibility for a risk reducing agent. 2. If overall lifetime risk for the development of breast cancer is 20% or higher, the patient may qualify for future screening with alternating mammogram and breast MRI. Electronically signed and approved by: Steve Hdez DO
== END | disposition home or self-care (01) ==
LOC: RADMAMWWP 07:12
PROVIDERS: ATTEND Family Medicine
DX: Z12.31 Encounter for screening mammogram for malignant neoplasm of breast (principal); Z78.0 Asymptomatic menopausal state; Z80.3 Family history of malignant neoplasm of breast
CPT/HCPCS: 77063; 77067

== ENCOUNTER → 2024-03-17 | Outpatient (CLI) | payer BC, MEDICARE ==
--- NOTE | 2024-03-17 16:50 | US ---
EXAMINATION TYPE: US thyroid st tissue head/neck DATE OF EXAM: 03/17/2024 COMPARISON: US 01/28/2022 CLINICAL INDICATION: Female, 53 years old with history of E04.1 THYROID NODULE; Nodule TECHNIQUE: Grayscale and color Doppler imaging of the thyroid gland. FINDINGS: GLAND SIZE: Right Lobe: 5.7 x 1.4 x 2.4 cm Overall Parenchyma: heterogeneous Left Lobe: 4.4 x 1.4 x 2.0 cm Overall Parenchyma: heterogeneous Isthmus Thickness: 0.4 cm NODULES RIGHT: # of nodules measured on right: 0 LEFT: # of nodules measured on left: 1 1. 0.7 X 0.8 x 0.4 cm, upper Prior size: 0.6 x 0.5 x 0.3 cm TIRADS Score: 4 TIRADS Category 4: Composition: Solid or almost completely solid (2 points). Echogenicity: Hypoechoic (2 points). Shape: Wider than tall (0 points). Margin: Smooth (0 points). Echogenic foci: None or large comet-tail artifacts (0 points) Recommendation: If >1.5cm: FNA; If >1cm: Follow up at 1,2, 3,5 years ISTHMUS: # of nodules measured in the isthmus: 0 Bilateral neck scanned. *Hypoechoic area seen within right submandibular area= 1.3 x 0.9 x 0.5 cm. IMPRESSION: Left thyroid nodule in each criteria for follow-up. [facility], , 03/17/2024 4:48 PM
--- NOTE | 2024-03-20 07:48 | MM ---
Reason for Exam: Screening (asymptomatic). Last mammogram was performed 1 year(s) and 4 month(s) ago. Patient History: Menarche at age 14. First Full-Term at age 18. Right ovary removed at age 35. Postmenopausal. Patient has history of breast feeding. Hormonal Contraceptives for 2 years from age 21 until age 23. Maternal grandmother had breast cancer, age 50. Risk Values: Analisa 5 year model risk: 0.8%. NCI Lifetime model risk: 6.3%. Prior Study Comparison: 03/21/2020 Bilateral Screening Mammogram, [facility]. 08/05/2021 Bilateral Screening Mammogram, [facility]. 11/25/2022 Bilateral MG 3D screening mammo w/cad, [facility]. Tissue Density: The breasts are heterogeneously dense, which may obscure small masses. Findings: Analyzed By CAD. There is no suspicious group of microcalcifications or new suspicious mass in either breast. Stable chronic nodularity right breast. Overall Assessment: Benign, BI-RAD 2 Management: Screening Mammogram of both breasts in 1 year. . Patient should continue monthly self-breast exams. A clinical breast exam by your physician is recommended on an annual basis. This exam should not preclude additional follow-up of suspicious palpable abnormalities. Note on Analisa scores and lifetime risk: 1. A Analisa score greater than 3% is considered moderate risk. If this is the case, consider specialist referral to assess eligibility for a risk reducing agent. 2. If overall lifetime risk for the development of breast cancer is 20% or higher, the patient may qualify for future screening with alternating mammogram and breast MRI. [facility], , 03/20/2024 7:45 AM. Electronically signed and approved by: Calderon Sierra M.D. [facility]
== END | disposition home or self-care (01) ==
LOC: RADUSWWP 15:57
PROVIDERS: ATTEND Family Medicine
DX: Z12.31 Encounter for screening mammogram for malignant neoplasm of breast (principal); E04.1 Nontoxic single thyroid nodule; Z78.0 Asymptomatic menopausal state; Z80.3 Family history of malignant neoplasm of breast; Z90.722 Acquired absence of ovaries, bilateral; R92.333 Mammographic heterogeneous density, bilateral breasts
CPT/HCPCS: 76536; 77063; 77067